=== PATIENT | female | born 1985 | race Caucasian/White ===

== ENCOUNTER 2016-05-05 02:28 | Emergency (ER) | payer MEDICARE ==
[2016-05-05] MEDS ORDERED: Sodium Chloride 0.9% 1000 ML 1,000 ML IV STA (03:14)
[2016-05-05] MEDS ORDERED: NORVASC 5 MG PO ONE (03:14)
--- NOTE | 2016-05-05 03:18 | ERPHSYRPT ---
- History of Present Illness Time Seen by Provider: 05/05/16 03:17 Source: patient Exam Limitations: no limitations Patient Subjective Stated Complaint: Pt C/O cold symptoms - cough, congestion for several days. Sts tonight had elevated B/P at work, sts took 10 mg lisinopril and 37.5 mg of metoprolol to attempt to decrease B/P and HR. Sts took these meds at 0100. Sts no relief. Triage Nursing Assessment: Pt alert, oriented, answers all questions appropriately. Skin p/w/d, resps non-labored. Pt ambulatory to tx room, steady gait noted. Heart RRR. Lungs CTA bilat non-labored. SPO2 98% room air. Physician History: Pt C/O cold symptoms - cough, congestion for several days. Sts tonight had elevated B/P at work, sts took 10 mg lisinopril and 37.5 mg of metoprolol to attempt to decrease B/P and HR. Sts took these meds at 0100. Sts no relief. Timing/Duration: today Activities at Onset: none Nitro Today/Relief: no nitro taken today Aspirin Treatment Today: no aspirin today Associated Symptoms: headaches Prior Chest Pain/Cardiac Workup: no prior chest pain Allergies/Adverse Reactions: acetaminophen [From Vicodin ES] Allergy (Mild, Verified 05/05/16 02:42) hydrocodone bitartrate [From Vicodin ES] Allergy (Mild, Verified 05/05/16 02:42) ketorolac tromethamine [From Toradol] Allergy (Mild, Verified 05/05/16 02:42) lisinopril Allergy (Mild, Verified 05/05/16 02:42) prochlorperazine edisylate [From Compazine] Allergy (Mild, Verified 05/05/16 02: 42) prochlorperazine maleate [From Compazine] Allergy (Mild, Verified 05/05/16 02:42 ) promethazine HCl [From Phenergan] Allergy (Mild, Verified 05/05/16 02:42) vancomycin Allergy (Mild, Verified 05/05/16 02:42) Home Medications: Mycophenolate Mofetil [Cellcept] 500 mg PO BID 05/25/12 [History] Tacrolimus [Prograf] 5 mg PO BID 05/25/12 [History] Metoprolol Succinate 25 mg Xl* [Toprol-Xl 25MG Tablets] 25 mg PO UD PRN 03/28 [History] Sulfamethoxazole/Trimethoprim [Bactrim Ds Tablet] 1 each PO DAILY 05/05/16 [ History] Hx Tetanus, Diphtheria Vaccination/Date Given: (2006) Hx Influenza Vaccination/Date Given: Yes (2012) Hx Pneumococcal Vaccination/Date Given: Yes (2012) Immunizations Up to Date: Yes - Review of Systems Constitutional: No Fever, No Chills Eyes: No Symptoms Ears, Nose, & Throat: No Symptoms Respiratory: No Cough, No Dyspnea Cardiac: No Chest Pain, No Edema, No Syncope Abdominal/Gastrointestinal: No Abdominal Pain, No Nausea, No Vomiting, No Diarrhea Genitourinary Symptoms: No Dysuria Musculoskeletal: No Back Pain, No Neck Pain Skin: No Rash Neurological: Headache, No Dizziness, No Focal Weakness, No Sensory Changes Psychological: No Symptoms Endocrine: No Symptoms All Other Systems: Reviewed and Negative - Past Medical History Pertinent Past Medical History: Yes Neurological History: Seizures Cardiac History: Hypertension Musculoskeletal History: Arthritis, Osteoarthritis GI Medical History: GERD History: Renal Disease, Other Female Reproductive Disorders: Abnormal Uterine Bleeding, Menstrual Problems, Other Other Medical History: POLYCYSTIC OVARIES, BACTERIAL MENNINGITIS - Past Surgical History Past Surgical History: Yes Genitourinary: Kidney Surgery, Kidney Transplant Musculoskeletal: Orthopedic Surgery Other Surgical History: tonsillectomy, grafts to right arm, perma caths, laryngoplasty - Social History Smoking Status: Never smoker Exposure to second hand smoke: No Drug Use: none Patient Lives Alone: No - Female History Hx Now: No - Nursing Vital Signs Temperature: 97.9 F Temperature Source: Oral Pulse Rate: 91 Respiratory Rate: 16 Pain Intensity: 5 - Physical Exam General Appearance: no apparent distress, alert Eye Exam: PERRL/EOMI, eyes nml inspection Ears, Nose, Throat Exam: normal ENT inspection, moist mucous membranes Neck Exam: normal inspection, non-tender, supple Respiratory Exam: normal breath sounds, lungs clear, No respiratory distress Cardiovascular Exam: regular rate/rhythm, normal heart sounds, No edema Gastrointestinal/Abdomen Exam: soft, No tenderness, No mass Back Exam: normal inspection, No CVA tenderness, No vertebral tenderness Extremity Exam: normal inspection, normal range of motion Neurologic Exam: alert, oriented x 3, cooperative, normal mood/affect, nml cerebellar function, sensation nml, No motor deficits Skin Exam: normal color, warm, dry Lymphatic Exam: No adenopathy SpO2: 98 Oxygen Delivery: Room Air - Course Nursing assessment & vital signs reviewed: Yes Ordered Tests: Active Orders 24 hr Category Date Time Status Partnership Manager STAT Care 05/05/16 03:14 Active EKG-ER Only STAT Care 05/05/16 03:14 Active CBC W DIFF Stat Lab 05/05/16 03:46 Completed CMP Stat Lab 05/05/16 03:46 Completed NT PRO BNP Stat Lab 05/05/16 03:46 Completed TROPONIN Q3H Lab 05/05/16 03:46 Completed TROPONIN Q3H Lab 05/05/16 06:15 Ordered TROPONIN Q3H Lab 05/05/16 09:15 Ordered TROPONIN Q3H Lab 05/05/16 12:15 Ordered TROPONIN Q3H Lab 05/05/16 15:15 Ordered Medication Summary Discontinued Medications Generic Name Dose Route Start Last Admin Trade Name Freq PRN Reason Stop Dose Admin Amlodipine Besylate 5 mg 05/05/16 03:14 05/05/16 03:42 Norvasc 5 Mg PO 05/05/16 03:15 5 mg STAT ONE Administration Amlodipine Besylate Confirm 05/05/16 03:29 Norvasc 5 Mg Administered 05/05/16 03:30 Dose 5 mg .ROUTE .STK-MED ONE Sodium Chloride 1,000 mls @ 999 mls/hr 05/05/16 03:14 05/05/16 03:42 Sodium Chloride 0.9% 1000 Ml IV 05/05/16 04:14 999 mls/hr .Q1H1M STA Administration Sodium Chloride Confirm 05/05/16 03:29 Sodium Chloride 0.9% 1000 Ml Administered 05/05/16 03:30 Dose 1,000 mls @ ud .ROUTE .STK-MED ONE Lab/Rad Data: Laboratory Result Diagrams 05/05/16 03:46 05/05/16 03:46 Laboratory Results 05/05/16 05/05/16 05/05/16 Range/Units 03:46 03:46 03:46 WBC 7.2 (4.0-10.5) K/mm3 RBC 4.50 (4.1-5.4) M/mm3 Hgb 13.3 (12.0-16.0) gm/dl Hct 40.8 (35-47) % MCV 90.7 (78-100) fl MCH 29.6 (26-32) pg MCHC 32.6 (32-36) g/dl RDW 13.6 (11.5-14.0) % Plt Count 211 (150-450) K/mm3 MPV 12.4 H (6-9.5) fl Gran % 72.3 H (36.0-66.0) % Lymphocytes % 18.5 L (24.0-44.0) % Monocytes % 8.8 (0.0-12.0) % Eosinophils % 0.3 (0.00-5.0) % Basophils % 0.1 (0.0-0.4) % Basophils # 0.01 (0-0.4) Sodium 145 (136-145) mEq/L Potassium 3.7 (3.5-5.1) mEq/L Chloride 110 H (98-107) mEq/L Carbon Dioxide 23.5 (21-32) mEq/L Anion Gap 15.6 H (5-15) MEQ/L BUN 17 (9-20) mg/dL Creatinine 0.94 (0.55-1.30) mg/dl Estimated GFR > 60 ML/MIN Glucose 103 (70-110) MG/DL Calcium 8.9 (8.5-10.1) mg/dL Total Bilirubin 0.3 (0.2-1.0) mg/dL AST 31 (15-37) U/L ALT 35 (12-78) U/L Alkaline Phosphatase 68 (46-116) U/L Troponin I < 0.017 (0.000-0.056) ng/ml NT-Pro-B Natriuret Pep 452 H (0-125) pg/ml Serum Total Protein 6.9 (6.4-8.2) gm/dL Albumin 3.5 (3.4-5.0) g/dL - Progress Progress: improved - Departure Time of Disposition: 04:42 Departure Disposition: Home Clinical Impression: Hypertensive urgency Condition: Stable Critical Care Time: Yes Critical Care Time(excluding separately billable procedures): 30-74 minutes Referrals: SONIDO GARDINER [Primary Care Provider] - Instructions: Malignant Hypertension Additional Instructions: continue all your home meds. follow up with your primary care physician on friday
[2016-05-05] MEDS ORDERED: Sodium Chloride 0.9% 1000 ML 1,000 ML ONE (03:29)
[2016-05-05] MEDS ORDERED: NORVASC 5 MG ONE (03:29)
[2016-05-05 03:56] LABS: BASOPHIL % 0.1 % (0.0-0.4); Eosinophil % 0.3 % (0.00-5.0); Granulocytes % 72.3 % (36.0-66.0); Lymphocytes % 18.5 % (24.0-44.0); Mean Cell Volume 90.7 fl (78-100); Mean Corpuscular Hemoglobin 29.6 pg (26-32); Mean Platelet Volume 12.4 fl (6-9.5); Monocytes % 8.8 % (0.0-12.0); Platelet Count 211 K/mm3 (150-450); Red Cell Distribution Width 13.6 % (11.5-14.0); White Blood Count 7.2 K/mm3 (4.0-10.5)
[2016-05-05 04:16] LABS: ALBUMIN 3.5 g/dL (3.4-5.0); ALKALINE PHOSPHATASE 68 U/L (46-116); ANION GAP 15.6 MEQ/L (5-15); BILIRUBIN,TOTAL 0.3 mg/dL (0.2-1.0); BLOOD UREA NITROGEN 17 mg/dL (9-20); CHLORIDE 110 mEq/L (98-107); Carbon Dioxide 23.5 mEq/L (21-32); Glucose 103 MG/DL (70-110); Potassium 3.7 mEq/L (3.5-5.1); SGOT/AST 31 U/L (15-37); SGPT/ALT 35 U/L (12-78); SODIUM 145 mEq/L (136-145); Total Protein 6.9 gm/dL (6.4-8.2)
[2016-05-05 05:03] VITALS: BP 146/97; PULSE 85; O2SAT 97
== END 2016-05-05 05:05 | disposition home or self-care (01) ==
LOC: ED 02:28
DX: I16.0 Hypertensive urgency (principal); R05 Cough; R51 Headache; Z79.899 Other long term (current) drug therapy; I10 Essential (primary) hypertension
CPT/HCPCS: 36415; 80053; 83880; 84484; 85025; 93005; 93041; 96360; 99284; A9270-GY

== ENCOUNTER 2019-11-10 07:39 | Observation (INO) | payer MEDICARE ==
[2019-11-10] MEDS ORDERED: Catapres 0.1 MG PO ONE (08:17)
--- NOTE | 2019-11-10 08:17 | ERPHSYRPT ---
- History of Present Illness Time Seen by Provider: 11/10/19 08:06 Source: patient Exam Limitations: no limitations Patient Subjective Stated Complaint: High blood pressure and high blood sugar from steroids being given for kidney transplant rejection issues. Physician History: She is a renal transplant patient, followed by [facility], she is showing signs of rejection and yesterday started high dose IV steroids for 3 days, then will be on oral prednisone. In the past, the steroids have caused quite high blood pressure, and somewhat elevated blood sugar. She is on routine BP med, but is not a diabetic ordinarily. Her BP became elevated at home today and the renal team had her talk to her braille translator. She does not have a hx of CAD, just HTN. The plan was to start her on clonidine 0.1 mg tid in addition to her usual BP med, but she decided to come to ER because she did not feel well, no chest pain, possible dyspnea. I think there is also some confusion on her medications because she has been on two beta blockers evidently. Norvasc causes excessive edema and she no longer takes that Timing/Duration: today Severity: moderate Modifying Factors: Improves With: other (steroids) Associated Symptoms: shortness of breath (mild) Allergies/Adverse Reactions: acetaminophen [From Vicodin ES] Allergy (Mild, Verified 11/10/19 09:45) hydrocodone bitartrate [From Vicodin ES] Allergy (Mild, Verified 11/10/19 09:45) ketorolac tromethamine [From Toradol] Allergy (Mild, Verified 11/10/19 09:45) lisinopril Allergy (Mild, Verified 11/10/19 09:45) prochlorperazine edisylate [From Compazine] Allergy (Mild, Verified 11/10/19 09:45) prochlorperazine maleate [From Compazine] Allergy (Mild, Verified 11/10/19 09:45) promethazine HCl [From Phenergan] Allergy (Mild, Verified 11/10/19 09:45) vancomycin Allergy (Mild, Verified 11/10/19 09:45) hydrocodone [From Vicodin] Allergy (Verified 11/10/19 09:45) ketorolac [From Toradol] Allergy (Verified 11/10/19 09:45) prochlorperazine [From Compazine] Allergy (Verified 11/10/19 09:45) promethazine [From Phenergan] Allergy (Verified 11/10/19 09:45) Home Medications: Mycophenolate Mofetil [Cellcept] 500 mg PO BID 05/25/12 [History] Tacrolimus [Prograf] 5 mg PO BID 05/25/12 [History] Metoprolol Succinate 25 mg Xl* [Toprol-Xl 25MG Tablets] 25 mg PO UD PRN 03/28/13 [History] Carvedilol 6.25 mg [Coreg 6.25 MG] 6.25 mg PO BID 11/09/19 [History] Sertraline HCl [Zoloft] 12.5 mg PO 11/09/19 [History] Carvedilol 6.25 mg [Coreg 6.25 MG] 1 tab PO BID 11/10/19 [History] Metoprolol Succinate 50 mg [Toprol Xl 50 MG] 1 tab PO BID 11/10/19 [History] Tacrolimus [Prograf] 5 mg PO BID 11/10/19 [History] Travel Risk - International Travel Have you traveled outside of the country in past 3 weeks: No - Coronavirus Screening Are you exhibiting any of the following symptoms?: No Close contact with a COVID-19 positive Pt in past 14-21 Days: No - Review of Systems Constitutional: No Symptoms Eyes: No Symptoms Ears, Nose, & Throat: No Symptoms Respiratory: Dyspnea, Other (mild) Cardiac: No Symptoms Abdominal/Gastrointestinal: No Symptoms Genitourinary Symptoms: No Symptoms Musculoskeletal: No Symptoms - Past Medical History Neurological History: No Pertinent History ENT History: No Pertinent History, Other (Corneal dystrophy) Cardiac History: Hypertension Respiratory History: No Pertinent History Endocrine Medical History: No Pertinent History Musculoskeletal History: No Pertinent History GI Medical History: GERD History: Renal Disease, Other (kidney transplant) Psycho-Social History: Anxiety Female Reproductive Disorders: Fibroids - Past Surgical History Past Surgical History: Yes Neuro Surgical History: No Pertinent History Cardiac: No Pertinent History Respiratory: No Pertinent History Gastrointestinal: No Pertinent History Genitourinary: Kidney Transplant Musculoskeletal: No Pertinent History Female Surgical History: No Pertinent History - Social History Smoking Status: Never smoker Exposure to second hand smoke: No Alcohol Use: None Drug Use: none Patient Lives Alone: No Significant Family History: other (See RN notes) - Female History Hx Now: No - Nursing Vital Signs Nursing Vital Signs: Initial Vital Signs Temperature 97.9 F 11/10/19 07:55 Pulse Rate 77 11/10/19 07:55 Respiratory Rate 20 11/10/19 07:55 Blood Pressure 205/139 11/10/19 07:55 O2 Sat by Pulse Oximetry 97 11/10/19 07:55 Pain Scale Pain Intensity 5 - Physical Exam General Appearance: mild distress, alert, anxiety Eye Exam: PERRL/EOMI, eyes nml inspection Ears, Nose, Throat Exam: normal ENT inspection Neck Exam: normal inspection, non-tender Respiratory Exam: normal breath sounds, airway intact Cardiovascular Exam: regular rate/rhythm, normal heart sounds, normal peripheral pulses Gastrointestinal/Abdomen Exam: soft, normal bowel sounds, other (surgical scar) Pelvic Exam: not done Rectal Exam: deferred Back Exam: other (N/E) Extremity Exam: normal inspection, normal range of motion Neurologic Exam: alert, oriented x 3, cooperative Skin Exam: normal color SpO2 Interpretation: normal SpO2: 98 (Initial reading good, then went to low 90's) O2 Delivery: Room Air - Course Nursing assessment & vital signs reviewed: Yes EKG Interpreted by Me: RATE, Sinus Rhythm, NORMAL AXIS, NORMAL INTERVALS, NORMAL QRS, NORMAL ST-T, Other (Computer read is biatrial enlargement.) - Radiology Exams Chest X-ray Interpretation: Reviewed by me, Negative Ordered Tests: Active Orders 24 hr Category Date Time Status CHEST 1 VIEW (PORTABLE) Stat Exams 11/10/19 12:21 Completed CBC W DIFF Stat Lab 11/10/19 12:00 Completed CMP Stat Lab 11/10/19 12:00 Completed CULTURE,URINE Stat Lab 11/10/19 10:53 Received D-DIMER QUANTITATIVE Stat Lab 11/10/19 12:00 Completed MAGNESIUM Stat Lab 11/10/19 12:00 Completed POCT GLUCOSE Stat Lab 11/10/19 08:20 Completed TROPONIN Q3H Lab 11/10/19 12:00 Completed TROPONIN Q3H Lab 11/10/19 14:15 Completed TROPONIN Q3H Lab 11/10/19 17:00 Ordered TROPONIN Q3H Lab 11/10/19 20:00 Ordered TROPONIN Q3H Lab 11/10/19 23:00 Ordered UA W/RFX UR CULTURE Stat Lab 11/10/19 10:53 Completed Transfer Order Routine Transfer 11/10/19 Ordered Medication Summary Generic Name Dose Route Start Last Admin Trade Name Joe PRN Reason Stop Dose Admin Sodium Chloride 1,000 mls @ 150 mls/hr 11/10/19 11:00 11/10/19 10:53 Sodium Chloride 0.9% 1000 Ml IV 12/10/19 10:59 150 mls/hr .Q6H40M LUI Administration Labetalol HCl 20 mg 11/10/19 10:45 Trandate 100mg/20 Ml Mdv IV 12/10/19 10:44 [id number] LUI Discontinued Medications Generic Name Dose Route Start Last Admin Trade Name Joe PRN Reason Stop Dose Admin Acetaminophen 650 mg 11/10/19 08:49 11/10/19 08:53 Tylenol 325 Mg PO 11/10/19 08:50 650 mg STAT STA Administration Acetaminophen Confirm 11/10/19 08:52 Tylenol 325 Mg Administered 11/10/19 08:53 Dose 650 mg .ROUTE .STK-MED ONE Clonidine 0.1 mg 11/10/19 08:17 11/10/19 08:20 Catapres 0.1 Mg PO 11/10/19 08:18 0.1 mg STAT ONE Administration Clonidine Confirm 11/10/19 08:18 Catapres 0.1 Mg Administered 11/10/19 08:19 Dose 0.1 mg .ROUTE .STK-MED ONE Hydralazine HCl 20 mg 11/10/19 10:01 11/10/19 10:11 Apresoline 20 Mg/Ml Inj IV 11/10/19 10:02 20 mg STAT ONE Administration Hydralazine HCl Confirm 11/10/19 10:05 Apresoline 20 Mg/Ml Inj Administered 11/10/19 10:06 Dose 20 mg .ROUTE .STK-MED ONE Sodium Chloride Confirm 11/10/19 10:45 Sodium Chloride 0.9% 1000 Ml Administered 11/10/19 10:46 Dose 1,000 mls @ ud .ROUTE .STK-MED ONE Ceftriaxone Sodium/Dextrose 1 g in 50 mls @ 100 mls/hr 11/10/19 12:17 11/10/19 14:05 Rocephin 1 Gm-D5w 50 Ml Bag IV 11/10/19 12:46 100 ml/hr STAT STA 100 mls/hr Administration Ceftriaxone Sodium/Dextrose Confirm 11/10/19 12:27 Rocephin 1 Gm-D5w 50 Ml Bag Administered 11/10/19 12:28 Dose 1 g in 50 mls @ ud IV .STK-MED ONE Labetalol HCl Confirm 11/10/19 10:35 Trandate 20 Mg/5 Ml Syringe Administered 11/10/19 10:36 Dose 20 mg IV .STK-MED ONE Labetalol HCl 20 mg 11/10/19 10:51 11/10/19 10:55 Trandate 20 Mg/5 Ml Syringe IV 11/10/19 10:52 20 mg STAT ONE Administration Morphine Sulfate 2 mg 11/10/19 10:00 11/10/19 10:10 Morphine Sulfate 2 Mg Inj IV 11/10/19 10:01 2 mg STAT ONE Administration Morphine Sulfate Confirm 11/10/19 10:05 Morphine Sulfate 2 Mg Inj Administered 11/10/19 10:06 Dose 2 mg .ROUTE .STK-MED ONE Ondansetron HCl 4 mg 11/10/19 08:51 11/10/19 08:53 Zofran Odt 4 Mg PO 11/10/19 08:52 4 mg STAT ONE Administration Ondansetron HCl Confirm 11/10/19 08:52 Zofran Odt 4 Mg Administered 11/10/19 08:53 Dose 4 mg .ROUTE .STK-MED ONE Lab/Rad Data: Laboratory Result Diagrams 11/10/19 12:00 11/10/19 12:00 Laboratory Results 11/10/19 11/10/19 11/10/19 Range/Units 14:15 12:00 12:00 WBC (4.0-10.5) K/mm3 RBC (4.1-5.4) M/mm3 Hgb (12.0-16.0) gm/dl Hct (35-47) % MCV (78-100) fl MCH (26-32) pg MCHC (32-36) g/dl RDW (11.5-14.0) % Plt Count (150-450) K/mm3 MPV (7.5-11.0) fl Gran % (36.0-66.0) % Eos # (Auto) (0-0.5) Absolute Lymphs (auto) (1.0-4.6) Absolute Monos (auto) (0.0-1.3) Lymphocytes % (24.0-44.0) % Monocytes % (0.0-12.0) % Eosinophils % (0.00-5.0) % Basophils % (0.0-0.4) % Absolute Granulocytes (1.4-6.9) Basophils # (0-0.4) D-Dimer 712 H* (215-500) ng/mL Sodium (137-145) mmol/L Potassium (3.5-5.1) mmol/L Chloride (98-107) mmol/L Carbon Dioxide (22-30) mmol/L Anion Gap (5-15) MEQ/L BUN (7-17) mg/dL Creatinine (0.52-1.04) mg/dL Estimated GFR ML/MIN Glucose (74-106) mg/dL POC Glucometer (74 to 106) mg/dL Calcium (8.4-10.2) mg/dL Magnesium (1.6-2.3) mg/dL Total Bilirubin (0.2-1.3) mg/dL AST (14-36) U/L ALT (0-35) U/L Alkaline Phosphatase (38-126) U/L Troponin I < 0.012 < 0.012 (0.000-0.034) ng/mL Serum Total Protein (6.3-8.2) g/dL Albumin (3.5-5.0) g/dL Urine Color (YELLOW) Urine Appearance (CLEAR) Urine pH (5-6) Ur Specific [place] (1.005-1.025) Urine Protein (Negative) Urine Ketones (NEGATIVE) Urine Blood (0-5) Art/ul Urine Nitrite (NEGATIVE) Urine Bilirubin (NEGATIVE) Urine Urobilinogen (0-1) mg/dL Ur Leukocyte Esterase (NEGATIVE) Urine WBC (Auto) (0-5) /HPF Urine RBC (Auto) (0-2) /HPF U Epithel Cells (Auto) (FEW) /HPF Urine Bacteria (Auto) (NEGATIVE) /HPF Urine Mucus (Auto) (NEGATIVE) /HPF Urine Culture Reflexed (NO) Urine Glucose (NEGATIVE) mg/dL Slides for Path Review 11/10/19 11/10/19 11/10/19 Range/Units 12:00 12:00 10:53 WBC 15.0 H (4.0-10.5) K/mm3 RBC 3.43 L (4.1-5.4) M/mm3 Hgb 9.8 L (12.0-16.0) gm/dl Hct 30.4 L (35-47) % MCV 88.6 (78-100) fl MCH 28.6 (26-32) pg MCHC 32.2 (32-36) g/dl RDW 13.0 (11.5-14.0) % Plt Count 209 (150-450) K/mm3 MPV 13.2 H (7.5-11.0) fl Gran % 91.0 H (36.0-66.0) % Eos # (Auto) 0.01 (0-0.5) Absolute Lymphs (auto) 0.50 L (1.0-4.6) Absolute Monos (auto) 0.83 (0.0-1.3) Lymphocytes % 3.3 L (24.0-44.0) % Monocytes % 5.5 (0.0-12.0) % Eosinophils % 0.1 (0.00-5.0) % Basophils % 0.1 (0.0-0.4) % Absolute Granulocytes 13.63 H (1.4-6.9) Basophils # 0.01 (0-0.4) D-Dimer (215-500) ng/mL Sodium 138 (137-145) mmol/L Potassium 3.9 (3.5-5.1) mmol/L Chloride 117 H (98-107) mmol/L Carbon Dioxide 13 L* (22-30) mmol/L Anion Gap 11.3 (5-15) MEQ/L BUN 42 H (7-17) mg/dL Creatinine 2.86 H (0.52-1.04) mg/dL Estimated GFR 19.9 ML/MIN Glucose 127 H (74-106) mg/dL POC Glucometer (74 to 106) mg/dL Calcium 8.8 (8.4-10.2) mg/dL Magnesium 1.7 (1.6-2.3) mg/dL Total Bilirubin 0.40 (0.2-1.3) mg/dL AST 15 (14-36) U/L ALT 9 (0-35) U/L Alkaline Phosphatase 66 (38-126) U/L Troponin I (0.000-0.034) ng/mL Serum Total Protein 6.1 L (6.3-8.2) g/dL Albumin 3.2 L (3.5-5.0) g/dL Urine Color YELLOW (YELLOW) Urine Appearance CLOUDY (CLEAR) Urine pH 7.0 (5-6) Ur Specific [place] 1.013 (1.005-1.025) Urine Protein >=500 (Negative) Urine Ketones NEGATIVE (NEGATIVE) Urine Blood NEGATIVE (0-5) Art/ul Urine Nitrite NEGATIVE (NEGATIVE) Urine Bilirubin NEGATIVE (NEGATIVE) Urine Urobilinogen NEGATIVE (0-1) mg/dL Ur Leukocyte Esterase SMALL (NEGATIVE) Urine WBC (Auto) 11-15 (0-5) /HPF Urine RBC (Auto) 3-5 (0-2) /HPF U Epithel Cells (Auto) MODERATE (FEW) /HPF Urine Bacteria (Auto) NONE (NEGATIVE) /HPF Urine Mucus (Auto) SLIGHT (NEGATIVE) /HPF Urine Culture Reflexed YES (NO) Urine Glucose 50 (NEGATIVE) mg/dL Slides for Path Review YES 11/10/19 Range/Units 08:20 WBC (4.0-10.5) K/mm3 RBC (4.1-5.4) M/mm3 Hgb (12.0-16.0) gm/dl Hct (35-47) % MCV (78-100) fl MCH (26-32) pg MCHC (32-36) g/dl RDW (11.5-14.0) % Plt Count (150-450) K/mm3 MPV (7.5-11.0) fl Gran % (36.0-66.0) % Eos # (Auto) (0-0.5) Absolute Lymphs (auto) (1.0-4.6) Absolute Monos (auto) (0.0-1.3) Lymphocytes % (24.0-44.0) % Monocytes % (0.0-12.0) % Eosinophils % (0.00-5.0) % Basophils % (0.0-0.4) % Absolute Granulocytes (1.4-6.9) Basophils # (0-0.4) D-Dimer (215-500) ng/mL Sodium (137-145) mmol/L Potassium (3.5-5.1) mmol/L Chloride (98-107) mmol/L Carbon Dioxide (22-30) mmol/L Anion Gap (5-15) MEQ/L BUN (7-17) mg/dL Creatinine (0.52-1.04) mg/dL Estimated GFR ML/MIN Glucose (74-106) mg/dL POC Glucometer 114 H (74 to 106) mg/dL Calcium (8.4-10.2) mg/dL Magnesium (1.6-2.3) mg/dL Total Bilirubin (0.2-1.3) mg/dL AST (14-36) U/L ALT (0-35) U/L Alkaline Phosphatase (38-126) U/L Troponin I (0.000-0.034) ng/mL Serum Total Protein (6.3-8.2) g/dL Albumin (3.5-5.0) g/dL Urine Color (YELLOW) Urine Appearance (CLEAR) Urine pH (5-6) Ur Specific [place] (1.005-1.025) Urine Protein (Negative) Urine Ketones (NEGATIVE) Urine Blood (0-5) Art/ul Urine Nitrite (NEGATIVE) Urine Bilirubin (NEGATIVE) Urine Urobilinogen (0-1) mg/dL Ur Leukocyte Esterase (NEGATIVE) Urine WBC (Auto) (0-5) /HPF Urine RBC (Auto) (0-2) /HPF U Epithel Cells (Auto) (FEW) /HPF Urine Bacteria (Auto) (NEGATIVE) /HPF Urine Mucus (Auto) (NEGATIVE) /HPF Urine Culture Reflexed (NO) Urine Glucose (NEGATIVE) mg/dL Slides for Path Review - Progress Progress: improved, re-examined Progress Note: BP sig. elevated, tx with catapres 0.1 mg, then hydralazine 20 mg IV, then labetalol 20 mg IV - after all that BP normalized. Lab: WBC slightly up, likely from steroids, no fever, moderate anemia, chronic, acute renal insufficiency from transplant rejection, acidotic, troponin neg, EKG no ischemia, D-dimer elevated, may be a false positive related to renal disease, but cannot R/O PE, cannot do CT of chest with contrast due to renal insuff, V/Q scan cannot be done until tomorrow, one dose lovenox today (reduced to once daily due to low GFR), mild UTI, rocephin given. Called the transplant team, spoke to Bisi Sarmiento, she is coordinator and she spoke to Dr. Sheppard. OK to give rocephin and lovenox. Agree with plan to do V/Q scan. She is due for solumedrol 250 mg IV, can be given in hospital and her BP monitored. During regular hours, to reach transplant team call [phone], after hours call [phone]. 11/10/19 15:40 Discussed with : Julian Will see patient in: hospital (observation) Counseled pt/family regarding: lab results, diagnosis, rad results - Departure Departure Disposition: Observation Clinical Impression: Dyspnea Qualifiers: Dyspnea type: shortness of breath Qualified Code(s): R06.02 - Shortness of breath; R06.00 - Dyspnea, unspecified; R06.01 - Orthopnea Condition: Stable Critical Care Time: No
[2019-11-10] MEDS ORDERED: Catapres 0.1 MG ONE (08:18)
[2019-11-10] MEDS ORDERED: TYLENOL 325 MG PO STA (08:49)
[2019-11-10] MEDS ORDERED: ZOFRAN ODT 4 MG PO ONE (08:51)
[2019-11-10] MEDS ORDERED: ZOFRAN ODT 4 MG ONE (08:52)
[2019-11-10] MEDS ORDERED: TYLENOL 325 MG ONE (08:52)
[2019-11-10] MEDS ORDERED: MORPHINE SULFATE 2 MG INJ IV ONE (10:00)
[2019-11-10] MEDS ORDERED: APRESOLINE 20 MG/ML INJ IV ONE (10:01)
[2019-11-10] MEDS ORDERED: MORPHINE SULFATE 2 MG INJ ONE (10:05)
[2019-11-10] MEDS ORDERED: APRESOLINE 20 MG/ML INJ ONE (10:05)
[2019-11-10] MEDS ORDERED: TRANDATE 20 MG/5 ML SYRINGE IV ONE ×2 (10:35→10:51)
[2019-11-10] MEDS ORDERED: Sodium Chloride 0.9% 1000 ML 1,000 ML ONE (10:45)
[2019-11-10] MEDS ORDERED: TRANDATE 100MG/20 ML MDV IV SCH (10:45)
[2019-11-10] MEDS: Sodium Chloride 0.9% 1000 ML 1,000 ML IV SCH ×2 (10:53→19:31)
[2019-11-10 12:02] LABS: Appearance CLOUDY (CLEAR); Bilirubin NEGATIVE (NEGATIVE); Blood NEGATIVE Ery/ul (0-5); Epithelial Cells MODERATE /HPF (FEW); Glucose 50 mg/dL (NEGATIVE); Ketones NEGATIVE (NEGATIVE); Leukocyte Esterase SMALL (NEGATIVE); Mucus SLIGHT /HPF (NEGATIVE); Nitrite NEGATIVE (NEGATIVE); Protein,Urine Dip >=500 (Negative); Specific Gravity 1.013 (1.005-1.025); Urobilinogen NEGATIVE mg/dL (0-1)
[2019-11-10 12:08] LABS: Absolute Neutrophil Ct (ANC) 13.63 (1.4-6.9); BASOPHIL % 0.1 % (0.0-0.4); Basophil (Absolute #) 0.01 (0-0.4); Eosinophil % 0.1 % (0.00-5.0); Eosinophil (Absolute #) 0.01 (0-0.5); Hematocrit 30.4 % (35-47); Hemoglobin 9.8 gm/dl (12.0-16.0); Lymphocytes % 3.3 % (24.0-44.0); Mean Cell Volume 88.6 fl (78-100); Mean Corpuscular Hemoglobin 28.6 pg (26-32); Mean Corpuscular Hgb Concent. 32.2 g/dl (32-36); Mean Platelet Volume 13.2 fl (7.5-11.0); Monocyte (Absolute #) 0.83 (0.0-1.3); Monocytes % 5.5 % (0.0-12.0); Platelet Count 209 K/mm3 (150-450); Red Blood Count 3.43 M/mm3 (4.1-5.4)
[2019-11-10 12:18] LABS: ALBUMIN 3.2 g/dL (3.5-5.0); ANION GAP 11.3 MEQ/L (5-15); BILIRUBIN,TOTAL 0.4 mg/dL (0.2-1.3); Calcium 8.8 mg/dL (8.4-10.2); Creatinine 1 2.86 mg/dL (0.52-1.04); EST GLOMERULAR FILTRATION RATE 19.9 ML/MIN; MAGNESIUM 1.7 mg/dL (1.6-2.3); Potassium 3.9 mmol/L (3.5-5.1); Total Protein 6.1 g/dL (6.3-8.2)
[2019-11-10] MEDS ORDERED: ROCEPHIN 1 Gm-D5w 50 ml Bag** 1 G/50 ML IVPB IV ONE (12:27)
[2019-11-10] MEDS: ROCEPHIN 1 Gm-D5w 50 ml Bag** 1 G/50 ML IVPB IV STA ×2 (12:30→14:05)
--- NOTE | 2019-11-10 12:45 | XRAY ---
Indication: Fatigue, weakness, dyspnea. Comparison: December 16, 2014. Portable apical lordotic chest again demonstrates normal heart, lungs, and bony thorax.
[2019-11-10 14:11] LABS: Slide Review 1 YES
[2019-11-10] MEDS ORDERED: solu-MEDROL 125 MG IV ONE (16:09)
[2019-11-10] MEDS ORDERED: ENOXAPARIN SODIUM SQ ONE ×2 (16:09→18:55)
[2019-11-10] MEDS ORDERED: HUMALOG SQ PRN (18:17)
[2019-11-10] MEDS ORDERED: Catapres 0.1 MG PO PRN (19:20)
[2019-11-10] MEDS ORDERED: Apresoline 25 MG TABLET PO SCH (20:00)
[2019-11-10] MEDS ORDERED: NON-FORMULARY ITEM PO SCH ×2 (22:00)
[2019-11-10] MEDS ORDERED: ZOLOFT 50 MG TABLET PO SCH (22:00)
--- NOTE | 2019-11-10 22:09 | PCM.HP ---
History of Present Illness - Chief Complaint Chief Complaint: Hypertensive crisis History of Present Illness: is a 34 year old female. Patient is a 34 yr old female renal transplant patient with HTN and proteinuria.Transplant was in 2012 LLQ. 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 Patient began having a tightness /squeezing sensation mid chest and some difficulty taking a deep breath hours after her IV infusion of Solumedrol 250 mg and she presented to ER. Her B/P was 209/135 and she was given Clonidine as instructed by her Electrical Intern but req uired IV Hydralazine then Lobetolol due to tachycardia. Workup showed normal CXR,troponin not elevated but d-dimer was elevated at 712, BUN/Signalman = 42/2.86 so unable to do contrasted Chest CT and patient was given Lovenox injection and admitted to Observation until VQ scan could be done in the morning.Patient had a renal biopsy on Friday this week after showing donor specific antibodies. She was given IV Rocephin in ER for UTI. - Review of Systems Constitutional: Other (no fever) Eyes: No Symptoms Ears, Nose, & Throat: Ear Pain, Mouth Pain (back molar tender), Other (no sore throat) Respiratory: Short Of Breath (see HPI) Cardiac: Chest Pain (see HPI), Other (no edema) Abdominal/Gastrointestinal: No Symptoms Genitourinary Symptoms: No Symptoms Musculoskeletal: No Symptoms Skin: No Symptoms Neurological: No Symptoms Psychological: Anxiety ( during this HTN crisis) Endocrine: No Symptoms Hematologic/Lymphatic: No Symptoms Medications & Allergies Home Medications: Home Medication List Mycophenolate Mofetil [Cellcept] 500 mg PO TID 05/25/12 [History Confirmed 11/10/19] Sertraline HCl [Zoloft] 12.5 mg PO HS 11/09/19 [History Confirmed 11/10/19] Carvedilol 6.25 mg [Coreg 6.25 MG] 1 tab PO BID 11/10/19 [History Confirmed 11/10/19] Tacrolimus [Prograf] 5 mg PO BID 11/10/19 [History Confirmed 11/10/19] Allergies/Adverse Reactions: Allergies Allergy/AdvReac Type Severity Reaction Status Date / Time acetaminophen Allergy Mild Verified 11/10/19 09:45 [From Vicodin ES] hydrocodone bitartrate Allergy Mild Verified 11/10/19 09:45 [From Vicodin ES] ketorolac tromethamine Allergy Mild Verified 11/10/19 09:45 [From Toradol] lisinopril Allergy Mild Verified 11/10/19 09:45 prochlorperazine edisylate Allergy Mild Verified 11/10/19 09:45 [From Compazine] prochlorperazine maleate Allergy Mild Verified 11/10/19 09:45 [From Compazine] promethazine HCl Allergy Mild Verified 11/10/19 09:45 [From Phenergan] vancomycin Allergy Mild Verified 11/10/19 09:45 hydrocodone [From Vicodin] Allergy Verified 11/10/19 09:45 ketorolac [From Toradol] Allergy Verified 11/10/19 09:45 prochlorperazine Allergy Verified 11/10/19 09:45 [From Compazine] promethazine [From Phenergan] Allergy Verified 11/10/19 09:45 - Past Medical History Past Medical History: Yes Neurological History: No Pertinent History ENT History: No Pertinent History, Other Cardiac History: Hypertension Respiratory History: No Pertinent History Endocrine Medical History: No Pertinent History, Other (hyperglycemia due to steroids) Musculoskelatal History: No Pertinent History GI Medical History: GERD History: Renal Disease, Other (Renal transplant 2005 to RLQ donor was patient's Mother-rejected. 2nd renal transplant 2012 to Q) Pyscho-Social History: Anxiety, Depression Reproductive Disorders: Fibroids Comment: Fukes Disease - Female History Hx Last Menstrual Period: 9 days ago Are you now?: No - Past Surgical History Past Surgical History: Yes Neuro Surgical History: No Pertinent History Cardiac History: No Pertinent History Respiratory Surgery: No Pertinent History GI Surgical History: No Pertinent History Genitourinary Surgical Hx: Kidney Transplant Musculskeletal Surgical Hx: No Pertinent History Female Surgical History: No Pertinent History Other Surgical History: Larynoplasty with T+A. Numerous kidney biopsys. 1 kidney transplant 2005 that was removed 2008. 1 kidney transplant 2012 - Social History Smoking Status: Former smoker Exposure to second hand smoke: Yes (work) Alcohol: None, Rarely Drug Use: none Significant Family History: other (See RN notes) - Physical Exam Vital Signs: Vital Signs - 24 hr Temp Pulse Resp BP Pulse Ox 11/10/19 20:00 98.4 F 88 16 94/53 97 11/10/19 15:59 98 11/10/19 15:11 82 12 107/63 99 11/10/19 14:00 82 15 110/62 98 11/10/19 12:59 90 12 133/74 99 11/10/19 11:12 88 18 120/73 96 11/10/19 10:22 106 H 18 152/97 97 11/10/19 10:04 79 16 187/122 99 11/10/19 09:14 69 18 175/119 95 11/10/19 08:56 86 15 197/118 97 11/10/19 07:55 97.9 F 77 20 205/139 97 General Appearance: no apparent distress, other (eating evening meal) Neurologic Exam: alert, oriented x 3, cooperative, normal mood/affect Eye Exam: PERRL/EOMI, eyes nml inspection Ears, Nose, Throat Exam: TM abnormal (R) (dull), TM abnormal (L) (dull), other (some PND,right back molar mild gum inflammatio posteriorly) Respiratory Exam: normal breath sounds, lungs clear Cardiovascular Exam: regular rate/rhythm, other (no edema) Gastrointestinal/Abdomen Exam: soft (nontender), normal bowel sounds, mass (LLQ transplanted kidney is palpable) Back Exam: normal inspection (no tenderness) Extremity Exam: normal inspection Skin Exam: normal color, warm, dry Results - Labs Lab/Micro Results: Lab Results-Last 24 Hours 11/10/19 11/10/19 11/10/19 Range/Units 08:20 10:53 12:00 WBC 15.0 H (4.0-10.5) K/mm3 RBC 3.43 L (4.1-5.4) M/mm3 Hgb 9.8 L (12.0-16.0) gm/dl Hct 30.4 L (35-47) % MCV 88.6 (78-100) fl MCH 28.6 (26-32) pg MCHC 32.2 (32-36) g/dl RDW 13.0 (11.5-14.0) % Plt Count 209 (150-450) K/mm3 MPV 13.2 H (7.5-11.0) fl Gran % 91.0 H (36.0-66.0) % Eos # (Auto) 0.01 (0-0.5) Absolute Lymphs (auto) 0.50 L (1.0-4.6) Absolute Monos (auto) 0.83 (0.0-1.3) Lymphocytes % 3.3 L (24.0-44.0) % Monocytes % 5.5 (0.0-12.0) % Eosinophils % 0.1 (0.00-5.0) % Basophils % 0.1 (0.0-0.4) % Absolute Granulocytes 13.63 H (1.4-6.9) Basophils # 0.01 (0-0.4) D-Dimer (215-500) ng/mL Sodium (137-145) mmol/L Potassium (3.5-5.1) mmol/L Chloride (98-107) mmol/L Carbon Dioxide (22-30) mmol/L Anion Gap (5-15) MEQ/L BUN (7-17) mg/dL Creatinine (0.52-1.04) mg/dL Estimated GFR ML/MIN Glucose (74-106) mg/dL POC Glucometer 114 H (74 to 106) mg/dL Calcium (8.4-10.2) mg/dL Magnesium (1.6-2.3) mg/dL Total Bilirubin (0.2-1.3) mg/dL AST (14-36) U/L ALT (0-35) U/L Alkaline Phosphatase (38-126) U/L Troponin I (0.000-0.034) ng/mL Serum Total Protein (6.3-8.2) g/dL Albumin (3.5-5.0) g/dL Urine Color YELLOW (YELLOW) Urine Appearance CLOUDY (CLEAR) Urine pH 7.0 (5-6) Ur Specific [place] 1.013 (1.005-1.025) Urine Protein >=500 (Negative) Urine Ketones NEGATIVE (NEGATIVE) Urine Blood NEGATIVE (0-5) Art/ul Urine Nitrite NEGATIVE (NEGATIVE) Urine Bilirubin NEGATIVE (NEGATIVE) Urine Urobilinogen NEGATIVE (0-1) mg/dL Ur Leukocyte Esterase SMALL (NEGATIVE) Urine WBC (Auto) 11-15 (0-5) /HPF Urine RBC (Auto) 3-5 (0-2) /HPF U Epithel Cells (Auto) MODERATE (FEW) /HPF Urine Bacteria (Auto) NONE (NEGATIVE) /HPF Urine Mucus (Auto) SLIGHT (NEGATIVE) /HPF Urine Culture Reflexed YES (NO) Urine Glucose 50 (NEGATIVE) mg/dL Slides for Path Review YES 11/10/19 11/10/19 11/10/19 Range/Units 12:00 12:00 12:00 WBC (4.0-10.5) K/mm3 RBC (4.1-5.4) M/mm3 Hgb (12.0-16.0) gm/dl Hct (35-47) % MCV (78-100) fl MCH (26-32) pg MCHC (32-36) g/dl RDW (11.5-14.0) % Plt Count (150-450) K/mm3 MPV (7.5-11.0) fl Gran % (36.0-66.0) % Eos # (Auto) (0-0.5) Absolute Lymphs (auto) (1.0-4.6) Absolute Monos (auto) (0.0-1.3) Lymphocytes % (24.0-44.0) % Monocytes % (0.0-12.0) % Eosinophils % (0.00-5.0) % Basophils % (0.0-0.4) % Absolute Granulocytes (1.4-6.9) Basophils # (0-0.4) D-Dimer 712 H* (215-500) ng/mL Sodium 138 (137-145) mmol/L Potassium 3.9 (3.5-5.1) mmol/L Chloride 117 H (98-107) mmol/L Carbon Dioxide 13 L* (22-30) mmol/L Anion Gap 11.3 (5-15) MEQ/L BUN 42 H (7-17) mg/dL Creatinine 2.86 H (0.52-1.04) mg/dL Estimated GFR 19.9 ML/MIN Glucose 127 H (74-106) mg/dL POC Glucometer (74 to 106) mg/dL Calcium 8.8 (8.4-10.2) mg/dL Magnesium 1.7 (1.6-2.3) mg/dL Total Bilirubin 0.40 (0.2-1.3) mg/dL AST 15 (14-36) U/L ALT 9 (0-35) U/L Alkaline Phosphatase 66 (38-126) U/L Troponin I < 0.012 (0.000-0.034) ng/mL Serum Total Protein 6.1 L (6.3-8.2) g/dL Albumin 3.2 L (3.5-5.0) g/dL Urine Color (YELLOW) Urine Appearance (CLEAR) Urine pH (5-6) Ur Specific [place] (1.005-1.025) Urine Protein (Negative) Urine Ketones (NEGATIVE) Urine Blood (0-5) Art/ul Urine Nitrite (NEGATIVE) Urine Bilirubin (NEGATIVE) Urine Urobilinogen (0-1) mg/dL Ur Leukocyte Esterase (NEGATIVE) Urine WBC (Auto) (0-5) /HPF Urine RBC (Auto) (0-2) /HPF U Epithel Cells (Auto) (FEW) /HPF Urine Bacteria (Auto) (NEGATIVE) /HPF Urine Mucus (Auto) (NEGATIVE) /HPF Urine Culture Reflexed (NO) Urine Glucose (NEGATIVE) mg/dL Slides for Path Review 11/10/19 11/10/19 11/10/19 Range/Units 14:15 17:05 17:35 WBC (4.0-10.5) K/mm3 RBC (4.1-5.4) M/mm3 Hgb (12.0-16.0) gm/dl Hct (35-47) % MCV (78-100) fl MCH (26-32) pg MCHC (32-36) g/dl RDW (11.5-14.0) % Plt Count (150-450) K/mm3 MPV (7.5-11.0) fl Gran % (36.0-66.0) % Eos # (Auto) (0-0.5) Absolute Lymphs (auto) (1.0-4.6) Absolute Monos (auto) (0.0-1.3) Lymphocytes % (24.0-44.0) % Monocytes % (0.0-12.0) % Eosinophils % (0.00-5.0) % Basophils % (0.0-0.4) % Absolute Granulocytes (1.4-6.9) Basophils # (0-0.4) D-Dimer (215-500) ng/mL Sodium (137-145) mmol/L Potassium (3.5-5.1) mmol/L Chloride (98-107) mmol/L Carbon Dioxide (22-30) mmol/L Anion Gap (5-15) MEQ/L BUN (7-17) mg/dL Creatinine (0.52-1.04) mg/dL Estimated GFR ML/MIN Glucose (74-106) mg/dL POC Glucometer 107 H (74 to 106) mg/dL Calcium (8.4-10.2) mg/dL Magnesium (1.6-2.3) mg/dL Total Bilirubin (0.2-1.3) mg/dL AST (14-36) U/L ALT (0-35) U/L Alkaline Phosphatase (38-126) U/L Troponin I < 0.012 < 0.012 (0.000-0.034) ng/mL Serum Total Protein (6.3-8.2) g/dL Albumin (3.5-5.0) g/dL Urine Color (YELLOW) Urine Appearance (CLEAR) Urine pH (5-6) Ur Specific [place] (1.005-1.025) Urine Protein (Negative) Urine Ketones (NEGATIVE) Urine Blood (0-5) Art/ul Urine Nitrite (NEGATIVE) Urine Bilirubin (NEGATIVE) Urine Urobilinogen (0-1) mg/dL Ur Leukocyte Esterase (NEGATIVE) Urine WBC (Auto) (0-5) /HPF Urine RBC (Auto) (0-2) /HPF U Epithel Cells (Auto) (FEW) /HPF Urine Bacteria (Auto) (NEGATIVE) /HPF Urine Mucus (Auto) (NEGATIVE) /HPF Urine Culture Reflexed (NO) Urine Glucose (NEGATIVE) mg/dL Slides for Path Review 11/10/19 11/10/19 Range/Units 20:30 20:53 WBC (4.0-10.5) K/mm3 RBC (4.1-5.4) M/mm3 Hgb (12.0-16.0) gm/dl Hct (35-47) % MCV (78-100) fl MCH (26-32) pg MCHC (32-36) g/dl RDW (11.5-14.0) % Plt Count (150-450) K/mm3 MPV (7.5-11.0) fl Gran % (36.0-66.0) % Eos # (Auto) (0-0.5) Absolute Lymphs (auto) (1.0-4.6) Absolute Monos (auto) (0.0-1.3) Lymphocytes % (24.0-44.0) % Monocytes % (0.0-12.0) % Eosinophils % (0.00-5.0) % Basophils % (0.0-0.4) % Absolute Granulocytes (1.4-6.9) Basophils # (0-0.4) D-Dimer (215-500) ng/mL Sodium (137-145) mmol/L Potassium (3.5-5.1) mmol/L Chloride (98-107) mmol/L Carbon Dioxide (22-30) mmol/L Anion Gap (5-15) MEQ/L BUN (7-17) mg/dL Creatinine (0.52-1.04) mg/dL Estimated GFR ML/MIN Glucose (74-106) mg/dL POC Glucometer 237 H (74 to 106) mg/dL Calcium (8.4-10.2) mg/dL Magnesium (1.6-2.3) mg/dL Total Bilirubin (0.2-1.3) mg/dL AST (14-36) U/L ALT (0-35) U/L Alkaline Phosphatase (38-126) U/L Troponin I < 0.012 (0.000-0.034) ng/mL Serum Total Protein (6.3-8.2) g/dL Albumin (3.5-5.0) g/dL Urine Color (YELLOW) Urine Appearance (CLEAR) Urine pH (5-6) Ur Specific [place] (1.005-1.025) Urine Protein (Negative) Urine Ketones (NEGATIVE) Urine Blood (0-5) Art/ul Urine Nitrite (NEGATIVE) Urine Bilirubin (NEGATIVE) Urine Urobilinogen (0-1) mg/dL Ur Leukocyte Esterase (NEGATIVE) Urine WBC (Auto) (0-5) /HPF Urine RBC (Auto) (0-2) /HPF U Epithel Cells (Auto) (FEW) /HPF Urine Bacteria (Auto) (NEGATIVE) /HPF Urine Mucus (Auto) (NEGATIVE) /HPF Urine Culture Reflexed (NO) Urine Glucose (NEGATIVE) mg/dL Slides for Path Review - Radiology Impressions Radiology Exams & Impressions: Radiology Procedures Category Date Time Status CHEST 1 VIEW (PORTABLE) Stat Exams 11/10/19 12:21 Completed - Other Procedures and Tests Respiratory Therapy 11/10/19 16:09 Oxygen Nasal Cannula 2 lpm Assessment/Plan (1) Hypertensive urgency Current Visit: No Status: Resolved Assessment & Plan: moniter overnight vitals q 2hour Code(s): I16.0 - HYPERTENSIVE URGENCY (2) Elevated d-dimer Current Visit: Yes Status: Acute Assessment & Plan: VQ scan,will discharge home if negative. Code(s): R79.89 - OTHER SPECIFIED ABNORMAL FINDINGS OF BLOOD CHEMISTRY (3) Hx of kidney transplant Current Visit: Yes Status: Chronic Assessment & Plan: 2012 with signs of rejection followed by Dr Chris Sheppard [facility]. [employer] - Nabila MELENDEZ phone [phone], fax [phone] (4) Current use of steroid medication Current Visit: Yes Status: Acute Assessment & Plan: given for renal transplant rejection. Code(s): Z79.52 - ASSISTED (CURRENT) USE OF SYSTEMIC STEROIDS (5) Hyperglycemia Current Visit: Yes Status: Acute Assessment & Plan: due to IV steroids,is on sliding scale Humalog/Novalog and has Rx from transplant team and has a glucometer at home. Code(s): R73.9 - HYPERGLYCEMIA, UNSPECIFIED (6) UTI (urinary tract infection) Current Visit: Yes Status: Acute Qualifiers: Urinary tract infection type: site unspecified Assessment & Plan: mild changes ER UA,culture pending. Rocephin 1 gram given in ER. Code(s): N39.0 - URINARY TRACT INFECTION, SITE NOT SPECIFIED
[2019-11-11] MEDS: Coreg 6.25 MG PO SCH ×2 (00:07→09:49)
[2019-11-11] MEDS: Sodium Chloride 0.9% 1000 ML 1,000 ML IV SCH (05:40)
[2019-11-11 07:41] VITALS: O2SAT 96
[2019-11-11] MEDS ORDERED: PATIENT OWN MEDICATION PO SCH ×2 (10:00)
[2019-11-11] MEDS ORDERED: FLUZONE QUAD 2020-2021 SYRINGE IM ONE (10:00)
--- NOTE | 2019-11-11 10:53 | XRAY ---
Indication: Chest pain and short of breath. Elevated d-dimer. Renal insufficiency. Comparison: None Patient received 5.6 mCi technetium 99 MAA for the perfusion portion of the exam. Patient inhaled 35.1 mCi aerosolized technetium 99 DTPA for the ventilation portion. Multiple planar images obtained. Perfusion images demonstrates normal radiopharmaceutical activity bilaterally without focal segmental/subsegmental perfusion defect. Ventilation images demonstrates homogeneous radiopharmaceutical activity bilaterally. Impression: Nuclear medicine ventilation/perfusion scan is normal.
[2019-11-11 12:00] VITALS: BP 133/80; PULSE 67
--- NOTE | 2019-11-11 12:51 | PCM.DCORD ---
- Discharge Discharge Date: 11/11/19 Disposition: Home, Self-Care Condition: Stable Prescriptions: New Clonidine HCl 0.1 mg [Catapres 0.1 MG] 0.2 mg PO Q4H PRN PRN tablet PRN Reason: Hypertension Continue Mycophenolate Mofetil [Cellcept] 500 mg PO TID Sertraline HCl [Zoloft] 12.5 mg PO HS Tacrolimus [Prograf] 5 mg PO BID Carvedilol 6.25 mg [Coreg 6.25 MG] 1 tab PO BID Instructions: High Blood Pressure (DC) Additional Instructions: Come back @4:00 P.M. as out patient for your 3rd dose of Solumedrol. Follow up with: PATEL BUITRAGO DO [Primary Care Provider] - 11/19/19 3:30 pm Forms: Discharge Instructions
== END 2019-11-11 12:15 | disposition home or self-care (01) ==
LOC: MERGE 07:39 → EDBD 07:39 → ED 07:39 → MED SURG 14:46
PROVIDERS: ADMIT Family Medicine; ATTEND Family Medicine
DX: I16.0 Hypertensive urgency (principal); Z94.0 Kidney transplant status; I10 Essential (primary) hypertension; R80.9 Proteinuria, unspecified; N39.0 Urinary tract infection, site not specified; K13.79 Other lesions of oral mucosa; H92.09 Otalgia, unspecified ear; Z79.52 Long term (current) use of systemic steroids; R73.9 Hyperglycemia, unspecified
CPT/HCPCS: 36000; 36415; 71045; 78582; 80053; 81001; 82962; 83735; 84484; 85025; 85379; 86317; 86787; 87086; 93268; 94760; 96360; 96361; 96365; 96374; 96375; 99285; A9540; A9567; G0008; G0378; 90686; J0360; J0696; J1650; J1817; J2270; J2930; Q0162; A9270-GY

== ENCOUNTER 2020-01-28 14:15 | Emergency (ER) | payer MEDICARE ==
--- NOTE | 2020-01-28 14:32 | ERPHSYRPT ---
- History of Present Illness Time Seen by Provider: 01/28/20 14:32 Source: patient Exam Limitations: no limitations Patient Subjective Stated Complaint: pt here for high blood pressure, pt was getting an infusion in op and b/p was elevated, she was given clinidine Triage Nursing Assessment: pt alert , face mask in place, resp easy, skin w/d/p. Physician History: This is a 34-year-old white female who has had 2 prior kidney transplants and was in the outpatient infusion center when she was found to have high blood pr essure readings. Patient has a history of hypertension and she is taking clonidine, carvedilol and losartan for blood pressure control. Patient states that she has not had any new symptoms. However, the readings were significantly high and patient was sent to the emergency department for evaluation. Patient had not taken her blood pressure medicine until right at the time of arrival for her infusion. When the reading was elevated they contacted the physician who prescribed the infusion and she took another clonidine prior to her medication infusion. After the infusion session, a repeat blood pressure level showed the systolic blood pressure to be over 200 and the patient came to emergency room for evaluation and management. Patient stated that the best her systolic blood pressure ever is is in the 140s to 150s range. She states that the diastolic blood pressure is never below 90. She stated that she routinely has spikes in her blood pressure to the 180s to 190s systolic. She also has noticed that after the infusions her blood pressure tends to run even higher for a couple d ays and then drops back down to her typical range. Patient is asymptomatic. Timing/Duration: today Severity: moderate Associated Symptoms: denies symptoms Allergies/Adverse Reactions: lisinopril Allergy (Mild, Verified 01/28/20 14:24) prochlorperazine edisylate [From Compazine] Allergy (Mild, Verified 01/28/20 14:24) prochlorperazine maleate [From Compazine] Allergy (Mild, Verified 01/28/20 14:24) vancomycin Allergy (Mild, Verified 01/28/20 14:24) hydrocodone [From Vicodin] Allergy (Verified 01/28/20 14:24) ketorolac [From Toradol] Allergy (Verified 01/28/20 14:24) promethazine [From Phenergan] Allergy (Verified 01/28/20 14:24) Home Medications: Sertraline HCl [Zoloft] 12.5 mg PO HS 11/09/19 [History] Carvedilol 6.25 mg [Coreg 6.25 MG] 2 tab PO BID 11/10/19 [History] Mycophenolate Sodium [Myfortic] 360 mg PO BID 01/28/20 [History] cycloSPORINE [Cyclosporine] 3 ea PO BID 01/28/20 [History] Hx Tetanus, Diphtheria Vaccination/Date Given: (2006) Hx Influenza Vaccination/Date Given: Yes Hx Pneumococcal Vaccination/Date Given: No Immunizations Up to Date: Yes Travel Risk - International Travel Have you traveled outside of the country in past 3 weeks: No (N) - Coronavirus Screening Are you exhibiting any of the following symptoms?: No Close contact with a COVID-19 positive Pt in past 14-21 Days: No - Review of Systems Constitutional: No Symptoms Eyes: No Symptoms Ears, Nose, & Throat: No Symptoms Respiratory: No Symptoms Cardiac: No Symptoms Abdominal/Gastrointestinal: No Symptoms Genitourinary Symptoms: No Symptoms Musculoskeletal: No Symptoms Skin: No Symptoms Neurological: No Symptoms Psychological: No Symptoms Endocrine: No Symptoms Hematologic/Lymphatic: No Symptoms Immunological/Allergic: No Symptoms All Other Systems: Reviewed and Negative - Past Medical History Pertinent Past Medical History: Yes Neurological History: No Pertinent History, Migraines, Seizures ENT History: No Pertinent History, Other Cardiac History: Hypertension Respiratory History: No Pertinent History Endocrine Medical History: No Pertinent History, Other Musculoskeletal History: No Pertinent History, Arthritis, Osteoarthritis GI Medical History: GERD History: Renal Disease, Other Psycho-Social History: Anxiety, Depression Female Reproductive Disorders: Fibroids Other Medical History: Fukes Disease, kidney transplant - Past Surgical History Past Surgical History: Yes Neuro Surgical History: No Pertinent History Cardiac: No Pertinent History Respiratory: No Pertinent History Gastrointestinal: No Pertinent History Genitourinary: Kidney Transplant Musculoskeletal: No Pertinent History, Orthopedic Surgery Female Surgical History: No Pertinent History Other Surgical History: Larynoplasty with T+A. Numerous kidney biopsys. 1 kidney transplant 2005 that was removed 2008. 1 kidney transplant 2012 - Social History Smoking Status: Former smoker Exposure to second hand smoke: Yes (once per week) Alcohol Use: None Drug Use: none Patient Lives Alone: Yes Significant Family History: other (See RN notes) - Female History Hx Last Menstrual Period: 01/23 Hx Now: No - Nursing Vital Signs Nursing Vital Signs: Initial Vital Signs Temperature 97.2 F 01/28/20 14:17 Pulse Rate 66 01/28/20 14:17 Respiratory Rate 18 01/28/20 14:17 Blood Pressure 171/83 01/28/20 14:17 O2 Sat by Pulse Oximetry 98 01/28/20 14:17 Pain Scale Pain Intensity 0 - Physical Exam General Appearance: no apparent distress, alert Eye Exam: PERRL/EOMI, eyes nml inspection Ears, Nose, Throat Exam: normal ENT inspection, moist mucous membranes Neck Exam: normal inspection, non-tender, supple, full range of motion Respiratory Exam: normal breath sounds, lungs clear, airway intact, No chest tenderness, No respiratory distress Cardiovascular Exam: regular rate/rhythm, normal heart sounds, normal peripheral pulses Gastrointestinal/Abdomen Exam: soft, normal bowel sounds, No tenderness Pelvic Exam: not done Rectal Exam: not done Back Exam: normal inspection, normal range of motion, No CVA tenderness, No vertebral tenderness Extremity Exam: normal inspection, normal range of motion, pelvis stable Neurologic Exam: alert, oriented x 3, cooperative, analyst geochemical prospecting II-XII nml as tested, normal mood/affect, nml cerebellar function, nml station & gait, sensation nml Skin Exam: normal color, warm, dry Lymphatic Exam: No adenopathy SpO2 Interpretation: normal SpO2: 98 O2 Delivery: Room Air - Course Nursing assessment & vital signs reviewed: Yes EKG Interpreted by Me: RATE (56), NORMAL AXIS, NORMAL INTERVALS, NORMAL QRS, Other (No acute ischemic changes. Comparison EKG 11/10/2019 no significant changes.) Ordered Tests: Active Orders 24 hr Category Date Time Status Veneer Slicing Machine Operator STAT Care 01/28/20 14:33 Active EKG-ER Only STAT Care 01/28/20 14:34 Active IV Insertion STAT Care 01/28/20 14:32 Active Pulse Oximetry (ED) STAT Care 01/28/20 14:32 Active CBC W DIFF Stat Lab 01/28/20 15:00 Completed CMP Stat Lab 01/28/20 15:00 Completed MAGNESIUM Stat Lab 01/28/20 15:00 Completed NT PRO BNP Stat Lab 01/28/20 15:00 Completed Medication Summary Discontinued Medications Generic Name Dose Route Start Last Admin Trade Name Freq PRN Reason Stop Dose Admin Clonidine 0.1 mg 01/28/20 16:10 Catapres 0.1 Mg PO 01/28/20 16:11 STAT ONE Metoprolol Tartrate 5 mg 01/28/20 14:51 01/28/20 15:27 Lopressor 5 Mg/5 Ml Injection IV 01/28/20 14:52 5 mg STAT ONE Administration Metoprolol Tartrate Confirm 01/28/20 15:22 Lopressor 5 Mg/5 Ml Injection Administered 01/28/20 15:23 Dose 5 mg IV .STK-MED ONE Lab/Rad Data: Laboratory Result Diagrams 01/28/20 15:00 01/28/20 15:00 Laboratory Results 01/28/20 01/28/20 Range/Units 15:00 15:00 WBC 3.3 L (4.0-10.5) K/mm3 RBC 3.12 L (4.1-5.4) M/mm3 Hgb 8.6 L (12.0-16.0) gm/dl Hct 28.5 L (35-47) % MCV 91.3 (78-100) fl MCH 27.6 (26-32) pg MCHC 30.2 L (32-36) g/dl RDW 12.7 (11.5-14.0) % Plt Count 177 (150-450) K/mm3 MPV 13.6 H (7.5-11.0) fl Gran % 77.0 H (36.0-66.0) % Eos # (Auto) 0.06 (0-0.5) Absolute Lymphs (auto) 0.53 L (1.0-4.6) Absolute Monos (auto) 0.14 (0.0-1.3) Lymphocytes % 16.3 L (24.0-44.0) % Monocytes % 4.3 (0.0-12.0) % Eosinophils % 1.8 (0.00-5.0) % Basophils % 0.6 (0.0-0.4) % Absolute Granulocytes 2.50 (1.4-6.9) Basophils # 0.02 (0-0.4) Sodium 134 L (137-145) mmol/L Potassium 4.0 (3.5-5.1) mmol/L Chloride 108 H (98-107) mmol/L Carbon Dioxide 18 L (22-30) mmol/L Anion Gap 13.0 (5-15) MEQ/L BUN 39 H (7-17) mg/dL Creatinine 3.67 H (0.52-1.04) mg/dL Estimated GFR 15.0 ML/MIN Glucose 120 H (74-106) mg/dL Calcium 8.7 (8.4-10.2) mg/dL Magnesium 1.8 (1.6-2.3) mg/dL Total Bilirubin 0.30 (0.2-1.3) mg/dL AST 17 (14-36) U/L ALT 9 (0-35) U/L Alkaline Phosphatase 79 (38-126) U/L NT-Pro-B Natriuret Pep 7360 H (0-450) pg/mL Serum Total Protein 6.4 (6.3-8.2) g/dL Albumin 3.5 (3.5-5.0) g/dL - Progress Progress: improved, re-examined Progress Note: 01/28/20 16:12 Medical decision making: This patient's blood pressure is slowly improving. We have used clonidine and intravenous Lopressor for her. Patient states she is not symptomatic at this time either. She states this is not unusual for her blood pressure to have these types of readings. Patient monitors her blood pressure often and does use the clonidine as prescribed. She stated that we will not get her blood pressure normal and has not been normal in years. Patient does not want to be admitted or transferred to another facility. We will give her another clonidine 0.1 prior to discharge. She was told to follow- up with her sugar chipper machine operator and transplant specialist on 01/31/2020. If symptoms become present, or she is concerned about her blood pressure numbers, she is to return to the emergency department. 01/28/20 16:15 Counseled pt/family regarding: lab results, diagnosis, need for follow-up - Departure Departure Disposition: Home Clinical Impression: Renal hypertension, Hypertensive urgency Condition: Stable Critical Care Time: Yes Critical Care Time(excluding separately billable procedures): Critical 30-74 mins Referrals: PATEL BUITRAGO DO [Primary Care Provider] -
[2020-01-28] MEDS ORDERED: LOPRESSOR 5 MG/5 ML INJECTION IV ONE ×4 (14:51→17:00)
[2020-01-28 15:09] LABS: BASOPHIL % 0.6 % (0.0-0.4); Basophil (Absolute #) 0.02 (0-0.4); Eosinophil % 1.8 % (0.00-5.0); Eosinophil (Absolute #) 0.06 (0-0.5); Hematocrit 28.5 % (35-47); Hemoglobin 8.6 gm/dl (12.0-16.0); Lymphocyte (Absolute #) 0.53 (1.0-4.6); Lymphocytes % 16.3 % (24.0-44.0); Mean Cell Volume 91.3 fl (78-100); Mean Corpuscular Hemoglobin 27.6 pg (26-32); Mean Corpuscular Hgb Concent. 30.2 g/dl (32-36); Mean Platelet Volume 13.6 fl (7.5-11.0); Monocyte (Absolute #) 0.14 (0.0-1.3); Monocytes % 4.3 % (0.0-12.0); Platelet Count 177 K/mm3 (150-450); Red Blood Count 3.12 M/mm3 (4.1-5.4); Red Cell Distribution Width 12.7 % (11.5-14.0); White Blood Count 3.3 K/mm3 (4.0-10.5)
[2020-01-28 15:25] LABS: ALBUMIN 3.5 g/dL (3.5-5.0); BILIRUBIN,TOTAL 0.3 mg/dL (0.2-1.3); Calcium 8.7 mg/dL (8.4-10.2); Creatinine 1 3.67 mg/dL (0.52-1.04); MAGNESIUM 1.8 mg/dL (1.6-2.3); Total Protein 6.4 g/dL (6.3-8.2)
[2020-01-28 15:36] VITALS: PULSE 56
[2020-01-28 15:50] VITALS: BP 200/118
[2020-01-28] MEDS ORDERED: Catapres 0.1 MG PO ONE (16:10)
[2020-01-28] MEDS ORDERED: Catapres 0.1 MG ONE (16:15)
[2020-01-28 17:13] VITALS: O2SAT 97
== END 2020-01-28 17:26 | disposition home or self-care (01) ==
LOC: ED 14:15
DX: I12.9 Hypertensive chronic kidney disease with stage 1 through stage 4 chronic kidney disease, or unspecified chronic kidney disease (principal); I16.0 Hypertensive urgency; Z94.0 Kidney transplant status
CPT/HCPCS: 36415; 80053; 83735; 83880; 85025; 93005; 93041; 96374; 99284; 99291; A9270-GY

== ENCOUNTER 2020-04-15 16:18 | Observation (INO) | payer MEDICARE ==
--- NOTE | 2020-04-15 16:20 | ERPHSYRPT ---
- History of Present Illness Time Seen by Provider: 04/15/20 16:20 Source: patient Exam Limitations: no limitations Physician History: This is a 35-year-old white female who was seen at a clinic on 04/10/2020 and labs were drawn. Patient was noticing she increasing shortness of breath over the last several days. She stated that she felt that she was possibly low on hem oglobin because of her symptoms. However, she had certified surgical first assistant classes that she wanted to continue and finish before she was seen in the emergency department or possibly admitted in the hospital. Patient has been prescribed erythropoietin stimulating medication. However, because of health insurance issues she has not been able to fill her medication. She was just notified today that her hemoglobin was low at 6.3. Patient has a history of anemia but in reviewing her past somewhat recent lab work, her hemoglobin runs in the 9 range. Patient has had a history of 2 prior renal transplant. The most recent was 2012. She states that she is in need of another renal transplant. Patient has a history of seizure disorders, hypertension, migraines, arthritis, osteoarthritis, gastroesophageal reflux disease, Fuchs disorder, anxiety and depression. Timing/Duration: day(s) (5) Severity of Dyspnea-Max: mild Severity of Dyspnea-Current: mild Possible Cause: occasional episodes Modifying Factors: Improves With: activity Associated Symptoms: weakness, No cough, No chest pain/discomfort Allergies/Adverse Reactions: lisinopril Allergy (Mild, Verified 04/15/20 16:33) prochlorperazine edisylate [From Compazine] Allergy (Mild, Verified 04/15/20 16:33) prochlorperazine maleate [From Compazine] Allergy (Mild, Verified 04/15/20 16:33) vancomycin Allergy (Mild, Verified 04/15/20 16:33) hydrocodone [From Vicodin] Allergy (Verified 04/15/20 16:33) ketorolac [From Toradol] Allergy (Verified 04/15/20 16:33) promethazine [From Phenergan] Allergy (Verified 04/15/20 16:33) Home Medications: Sertraline HCl [Zoloft] 12.5 mg PO HS 11/09/19 [History] Carvedilol 6.25 mg [Coreg 6.25 MG] 1 tab PO BID 11/10/19 [History] cycloSPORINE [Cyclosporine] 3 ea PO BID 01/28/20 [History] Clonidine HCl 0.1 mg [Catapres 0.1 MG] 0.2 mg PO Q4HPRN PRN 02/25/20 [History] Losartan Potassium [Cozaar] 25 mg PO DAILY 02/25/20 [History] Tocilizumab 400 mg/20 ml [Actemra] 500 mg IV UD 02/25/20 [History] Mycophenolate Mofetil [Cellcept] 500 mg PO TID 04/15/20 [History] Hx Tetanus, Diphtheria Vaccination/Date Given: (2006) Hx Influenza Vaccination/Date Given: Yes Hx Pneumococcal Vaccination/Date Given: No Travel Risk - International Travel Have you traveled outside of the country in past 3 weeks: No - Coronavirus Screening Are you exhibiting any of the following symptoms?: No Close contact with a COVID-19 positive Pt in past 14-21 Days: No - Review of Systems Constitutional: Weakness Eyes: No Symptoms Ears, Nose, & Throat: No Symptoms Respiratory: Dyspnea, Dyspnea on Exertion ([place]) Cardiac: No Symptoms, No Chest Pain Abdominal/Gastrointestinal: No Symptoms Genitourinary Symptoms: No Symptoms Musculoskeletal: No Symptoms Skin: No Symptoms Neurological: No Symptoms Psychological: No Symptoms Endocrine: No Symptoms Hematologic/Lymphatic: No Symptoms Immunological/Allergic: No Symptoms All Other Systems: Reviewed and Negative - Past Medical History Pertinent Past Medical History: Yes Neurological History: Migraines, Seizures ENT History: Other Cardiac History: Hypertension Respiratory History: No Pertinent History Endocrine Medical History: Other Musculoskeletal History: Arthritis, Osteoarthritis GI Medical History: GERD History: Renal Disease, Other Psycho-Social History: Anxiety, Depression Female Reproductive Disorders: Fibroids Other Medical History: Fukes Disease, kidney transplant x2 - Past Surgical History Past Surgical History: Yes Neuro Surgical History: No Pertinent History Cardiac: No Pertinent History Respiratory: No Pertinent History Gastrointestinal: No Pertinent History Genitourinary: Kidney Transplant Musculoskeletal: No Pertinent History, Orthopedic Surgery Female Surgical History: No Pertinent History Other Surgical History: Larynoplasty with T+A. Numerous kidney biopsys. 1 kidney transplant 2005 that was removed 2008. 1 kidney transplant 2012. right upper arm dialysis graft that is flattened- non functioning - Social History Smoking Status: Former smoker Exposure to second hand smoke: Yes (once per week) Alcohol Use: None Drug Use: none Patient Lives Alone: Yes Significant Family History: other (See RN notes) - Nursing Vital Signs Nursing Vital Signs: Initial Vital Signs Temperature 98.6 F 04/15/20 16:25 Pulse Rate 63 04/15/20 16:25 Respiratory Rate 13 04/15/20 16:25 Blood Pressure 193/108 04/15/20 16:25 O2 Sat by Pulse Oximetry 100 04/15/20 16:25 Pain Scale Pain Intensity 0 - Physical Exam General Appearance: no apparent distress, alert, anxiety Eye Exam: PERRL/EOMI, eyes nml inspection Ears, Nose, Throat Exam: hearing grossly normal, normal ENT inspection Neck Exam: normal inspection, non-tender, supple, full range of motion Respiratory Exam: normal breath sounds, lungs clear, airway intact, No chest tenderness, No respiratory distress Cardiovascular/Chest Exam: normal heart sounds, regular rate/rhythm, normal peripheral pulses Abdominal/Gastrointestinal Exam: soft, normal bowel sounds, No tenderness Rectal Exam: not done Extremity Exam: non-tender, normal range of motion, normal inspection Neurologic Exam: alert, oriented x 3, cooperative, garment parts cutter hand II-XII nml as tested, normal mood/affect, nml cerebellar function, nml station & gait Skin Exam: warm, dry, pale Lymphatic Exam: No adenopathy SpO2 Interpretation: normal O2 Delivery: Room Air - Course Nursing assessment & vital signs reviewed: Yes Ordered Tests: Active Orders 24 hr Category Date Time Status IV Insertion STAT Care 04/15/20 16:43 Active CBC W DIFF Stat Lab 04/15/20 16:54 Results CMP Stat Lab 04/15/20 16:54 Completed Manual Differential NC Stat Lab 04/15/20 16:54 Results PROTIME WITH INR Stat Lab 04/15/20 16:54 Completed Pathologist Review Stat Lab 04/15/20 16:54 Results Transfer Order Routine Transfer 04/15/20 Ordered Medication Summary Generic Name Dose Route Start Last Admin Trade Name Freq PRN Reason Stop Dose Admin Sodium Chloride 500 mls @ 50 mls/hr 04/15/20 20:15 04/15/20 20:13 Sodium Chloride 0.9% 500 Ml IV 05/15/20 20:14 50 mls/hr .Q10H LUI Administration Lab/Rad Data: Laboratory Result Diagrams 04/15/20 16:54 04/15/20 16:54 Laboratory Results 04/15/20 04/15/20 04/15/20 Range/Units 16:57 16:57 16:54 WBC (4.0-10.5) K/mm3 RBC (4.1-5.4) M/mm3 Hgb (12.0-16.0) gm/dl Hct (35-47) % MCV (78-100) fl MCH (26-32) pg MCHC (32-36) g/dl RDW (11.5-14.0) % Plt Count (150-450) K/mm3 MPV (7.5-11.0) fl Segmented Neutrophils (36.0-66.0) % Band Neutrophils (0.0-2.0) % Lymphocytes (Manual) (24-44) % Monocytes (Manual) (0.0-12.0) % Eosinophils (Manual) (0.00-3.0) % Hypochromia Platelet Estimate (NORMAL) RBC Morphology Poikilocytosis Ovalocytes Acanthocytes (Spur) Schistocytes Smear Path Review PT (9.95-12.35) SECONDS INR (0.8-3.0) Sodium (137-145) mmol/L Potassium (3.5-5.1) mmol/L Chloride (98-107) mmol/L Carbon Dioxide (22-30) mmol/L Anion Gap (5-15) MEQ/L BUN (7-17) mg/dL Creatinine (0.52-1.04) mg/dL Estimated GFR ML/MIN Glucose (74-106) mg/dL Calcium (8.4-10.2) mg/dL Total Bilirubin (0.2-1.3) mg/dL AST (14-36) U/L ALT (0-35) U/L Alkaline Phosphatase (38-126) U/L Serum Total Protein (6.3-8.2) g/dL Albumin (3.5-5.0) g/dL ABO Group A Rh Factor POSITIVE Antibody Screen NEGATIVE (NEGATIVE) Crossmatch COMPATIBLE COMPATIBLE COMPATIBLE (COMPATIBLE) 04/15/20 04/15/20 04/15/20 Range/Units 16:54 16:54 16:54 WBC 1.2 L* (4.0-10.5) K/mm3 RBC 2.35 L (4.1-5.4) M/mm3 Hgb 6.3 L* (12.0-16.0) gm/dl Hct 21.1 L (35-47) % MCV 89.8 (78-100) fl MCH 26.8 (26-32) pg MCHC 29.9 L (32-36) g/dl RDW 13.1 (11.5-14.0) % Plt Count 130 L (150-450) K/mm3 MPV 13.7 H (7.5-11.0) fl Segmented Neutrophils 16 L (36.0-66.0) % Band Neutrophils 10 H (0.0-2.0) % Lymphocytes (Manual) 52 H (24-44) % Monocytes (Manual) 18 H (0.0-12.0) % Eosinophils (Manual) 4 H (0.00-3.0) % Hypochromia 2+ Platelet Estimate NORMAL (NORMAL) RBC Morphology ABNORMAL Poikilocytosis 2+ Ovalocytes 2+ Acanthocytes (Spur) 1+ Schistocytes 1+ Smear Path Review Pending PT 12.8 H (9.95-12.35) SECONDS INR 1.13 (0.8-3.0) Sodium 136 L (137-145) mmol/L Potassium 3.8 (3.5-5.1) mmol/L Chloride 113 H (98-107) mmol/L Carbon Dioxide 17 L (22-30) mmol/L Anion Gap 10.2 (5-15) MEQ/L BUN 48 H (7-17) mg/dL Creatinine 4.12 H (0.52-1.04) mg/dL Estimated GFR 13.0 ML/MIN Glucose 107 H (74-106) mg/dL Calcium 7.7 L (8.4-10.2) mg/dL Total Bilirubin 0.30 (0.2-1.3) mg/dL AST 27 (14-36) U/L ALT 35 (0-35) U/L Alkaline Phosphatase 41 (38-126) U/L Serum Total Protein 5.5 L (6.3-8.2) g/dL Albumin 3.1 L (3.5-5.0) g/dL ABO Group Rh Factor Antibody Screen (NEGATIVE) Crossmatch (COMPATIBLE) - Progress Progress: improved, re-examined Air Movement: good Progress Note: 03/06/21 21:41 Medical decision making: This patient has an excellent understanding of her medical conditions and their management. She has chronically very high blood pressure. She is on 3 different medications for this. I have seen this patient on 2 other occasions. This patient states that her systolic blood pressure runs anywhere from 160s to 170s routinely. Her diastolic blood pressure is routinely between mid 90s to low 110s. She states it is not unusual for her systolic blood pressure to be over 200 and her diastolic blood pressure to be over 115. Then within 30 minutes she is back down to her routine levels without any intervention. Patient is very aware that she is chronically anemic and was aware that her hemoglobin was low. Also, she is having worsening kidney function (GFR) over the last several months. Finally, she is aware that she is having progressive leukopenia. They are working on getting her on the list for a third renal transplant. Patient has symptomatic anemia and will require blood transfusions. I spoke with Dr. Garza and reviewed the patient history, condition, laboratory results. He agrees to place the patient in observation. We will monitor and treat her blood pressure. We will transfuse her 3 units of packed red blood cells and repeat labs in the morning. Blood Culture(s) Obtained: No Antibiotics given: No Discussed with : Ivana Counseled pt/family regarding: lab results, diagnosis - Departure Departure Disposition: Observation Clinical Impression: Leukopenia, Symptomatic anemia, Thrombocytopenia, Hypertension Condition: Critical Care Time: Yes Critical Care Time(excluding separately billable procedures): Critical 30-74 mins Referrals: PATEL BUITRAGO DO [Primary Care Provider] -
[2020-04-15 16:57] LABS: Hematocrit 21.1 % (35-47); Mean Cell Volume 89.8 fl (78-100); Mean Corpuscular Hemoglobin 26.8 pg (26-32); Mean Corpuscular Hgb Concent. 29.9 g/dl (32-36); Mean Platelet Volume 13.7 fl (7.5-11.0); Platelet Count 130 K/mm3 (150-450); Red Blood Count 2.35 M/mm3 (4.1-5.4); Red Cell Distribution Width 13.1 % (11.5-14.0)
[2020-04-15 17:05] LABS: INR 1.13 (0.8-3.0); PROTIME 12.8 SECONDS (9.95-12.35)
[2020-04-15 17:09] LABS: Hemoglobin 6.3 gm/dl (12.0-16.0); White Blood Count 1.2 K/mm3 (4.0-10.5)
[2020-04-15 17:10] LABS: ALBUMIN 3.1 g/dL (3.5-5.0); ANION GAP 10.2 MEQ/L (5-15); BILIRUBIN,TOTAL 0.3 mg/dL (0.2-1.3); Calcium 7.7 mg/dL (8.4-10.2); Creatinine 1 4.12 mg/dL (0.52-1.04); Potassium 3.8 mmol/L (3.5-5.1); Total Protein 5.5 g/dL (6.3-8.2)
[2020-04-15 17:46] LABS: ABO TYPING A; Antibody Screen NEGATIVE (NEGATIVE); RH TYPING POSITIVE
[2020-04-15 19:20] LABS: BAND 10 % (0.0-2.0); Eosinophil 4 % (0.00-3.0); Hypochromia 2+; Lymphocytes 52 % (24-44); Monocyte 18 % (0.0-12.0); Neutrophils 16 % (36.0-66.0); Platelet Estimate NORMAL (NORMAL); Total Cells Counted 100
[2020-04-15 19:21] LABS: Ovalocytes 2+; Poikilocytosis 2+; Schistocytes 1+
[2020-04-15 19:22] LABS: ACANTHROCYTES 1+
[2020-04-15 19:54] LABS: CROSS MATCH (PRBC) COMPATIBLE (COMPATIBLE)
[2020-04-15] MEDS ORDERED: Sodium Chloride 0.9% 500 ML 500 ML IV ONE (20:05)
[2020-04-15] MEDS ORDERED: Sodium Chloride 0.9% 500 ML 500 ML IV SCH (20:15)
[2020-04-15 22:21] LABS: INFLUENZA A NEGATIVE (NEGATIVE); INFLUENZA B NEGATIVE (NEGATIVE); RESPIRATORY SYNCTIAL VIRUS NEGATIVE (Negative)
[2020-04-15] MEDS ORDERED: Zofran 4 MG/2 ML VIAL IV PRN (22:47)
[2020-04-15] MEDS ORDERED: TYLENOL 325 MG PO PRN (22:47)
[2020-04-16] MEDS ORDERED: Sodium Chloride 0.9% 500 ML 500 ML IV ONE (00:24)
[2020-04-16] MEDS ORDERED: Sodium Chloride 0.9% 500 ML 500 ML IV SCH (00:30)
[2020-04-16] MEDS: Catapres 0.1 MG PO PRN ×3 (00:52→09:06)
[2020-04-16 06:55] VITALS: PULSE 76; O2SAT 95
[2020-04-16 08:23] LABS: Absolute Neutrophil Ct (ANC) 0.13 (1.4-6.9); Basophil (Absolute #) 0.02 (0-0.4); Eosinophil (Absolute #) 0.08 (0-0.5); Hematocrit 34.5 % (35-47); Hemoglobin 10.9 gm/dl (12.0-16.0); Lymphocyte (Absolute #) 0.41 (1.0-4.6); Mean Cell Volume 88.5 fl (78-100); Mean Corpuscular Hemoglobin 27.9 pg (26-32); Mean Corpuscular Hgb Concent. 31.6 g/dl (32-36); Mean Platelet Volume 12.7 fl (7.5-11.0); Monocyte (Absolute #) 0.36 (0.0-1.3); Platelet Count 108 K/mm3 (150-450); Red Cell Distribution Width 13.7 % (11.5-14.0)
[2020-04-16 08:41] LABS: ANION GAP 13.1 MEQ/L (5-15); Creatinine 1 4.06 mg/dL (0.52-1.04); EST GLOMERULAR FILTRATION RATE 13.2 ML/MIN; Potassium 3.9 mmol/L (3.5-5.1)
[2020-04-16 09:03] VITALS: BP 211/118
[2020-04-16] MEDS ORDERED: TOCILIZUMAB IV SCH (10:45)
[2020-04-16] MEDS ORDERED: MEDICATION INTERVENTION PO SCH (10:45)
[2020-04-16] MEDS ORDERED: Coreg 6.25 MG PO SCH (11:00)
[2020-04-16] MEDS ORDERED: Cozaar 50 MG PO SCH (11:00)
[2020-04-16] MEDS ORDERED: NON-FORMULARY ITEM (Mycophenolate Mofetil [Cellcept] 500 MG) PO SCH (15:00)
[2020-04-16] MEDS ORDERED: ZOLOFT 50 MG TABLET PO SCH (22:00)
[2020-04-16] MEDS ORDERED: SERTRALINE HCL 12.5 MG PO SCH (22:00)
[2020-04-16] MEDS ORDERED: CYCLOSPORINE PO SCH (22:00)
[2020-04-17] MEDS ORDERED: NON-FORMULARY ITEM (Losartan Potassium [Cozaar] 25 MG) PO SCH (10:00)
--- NOTE | 2020-04-17 11:01 | SSS ---
DISCHARGE DIAGNOSES: 1) PROFOUND ANEMIA. 2) PANCYTOPENIA. 3) HYPERTENSION. 4) CHRONIC RENAL FAILURE. HISTORY: The patient is a 35 year-old white female who had labs performed and found her hemoglobin to be in the 6 range. The patient was trying to be contacted by her doctor, became more short of breath and presented to the emergency room and we confirmed that her blood count was very low. The plan was for her to be transfused. The patient also has history of very significant hypertension. She has had renal failure and two kidney transplants. She is on the list for a third. PAST MEDICAL/SURGICAL HISTORY: Otherwise significant for depression, anxiety. She has had fibroids, Fuchs disease with the kidneys and again kidney transplant and numerous kidney biopsies. The patient does see nephrology specialist in [place]. She sees Dr. Lindquist here for the past couple of years otherwise for her routine medical care. HOME MEDICATIONS: Currently are Sertraline 12.5 mg daily, carvedilol 6.25 b.i.d., cyclosporine 3 tablets twice a day, Catapres 0.2 mg q4h PRN, Cozaar 25 mg a day, Actemra 500 mg IV, CellCept 500 mg t.i.d. ALLERGIES: VANCOMYCIN. HYDROCODONE. TORADOL. PHENERGAN. LISINOPRIL. COMPAZINE. PHYSICAL EXAMINATION: Revealed a well-nourished, well-developed 35 year-old white female currently lying in bed in good spirits, appears to be in reasonably health considering. VITAL SIGNS: The patient's temperature was 98.6F on admission with pulse of 62, respiratory rate 13, blood pressure 193/108. O2 saturations 100%. HEENT: Normocephalic, atraumatic. Pupils equal round reactive to light. Extraocular movements intact. Oropharynx is pink and moist. NECK: Supple without lymphadenopathy, thyromegaly or JVD. CHEST: Clear to auscultation. HEART: Regular rate and rhythm. ABDOMEN: Soft. EXTREMITIES: Without cyanosis, clubbing or edema. NEUROLOGIC: The patient is alert and oriented x3. LAB DATA AND TESTS: The patient's laboratory studies from the emergency room were negative for COVID, influenza and RSV. Her INR is 1.13. Her white blood cell count was 1,200, hemoglobin 6.3, PLT count 130,000. Sugar 107, BUN 48, creatinine 4.12, sodium 136, potassium 3.8, chloride 113, bicarb 17. Liver enzymes were normal. The patient's differential showed 16 polys, 10 bands, 52 lymphocytes, 18 monocytes. HOSPITAL COURSE: The patient received 3 units of packed red blood cells bringing her hemoglobin up to 10.9. Her white count however was only 1,000, platelet count was down to 108,000. We discussed with the patient her care. She wished to return home presently as she will see her veneer layer and follow up with her primary care physician. She will continue her home medications for hypertension which she knows is quite significant. Her plans otherwise are to follow up in [place]. We will give her all of her labs to take to her primary care physician and to her veneer layer and transplant people in [place].
== END 2020-04-16 11:17 | disposition home or self-care (01) ==
LOC: ED 16:18 → MED SURG 22:44
PROVIDERS: ADMIT Family Medicine; ATTEND Family Medicine
DX: D64.9 Anemia, unspecified (principal); I12.9 Hypertensive chronic kidney disease with stage 1 through stage 4 chronic kidney disease, or unspecified chronic kidney disease; N18.9 Chronic kidney disease, unspecified; D61.818 Other pancytopenia; Z79.899 Other long term (current) drug therapy; Z94.0 Kidney transplant status
CPT/HCPCS: 0241U; 36000; 36415; 36430; 80048; 80053; 85025; 85610; 86850; 86900; 86901; 86922; 99285; 99291; G0378; P9016; A9270-GY

== ENCOUNTER 2020-05-28 10:06 | Emergency (ER) | payer MEDICARE ==
[2020-05-28] MEDS ORDERED: Sodium Chloride 0.9% 1000 ML 1,000 ML IV STA (11:07)
[2020-05-28] MEDS ORDERED: Sodium Chloride 0.9% 1000 ML 1,000 ML ONE (11:21)
[2020-05-28] MEDS ORDERED: ZOFRAN ODT 4 MG PO PRN (11:32)
[2020-05-28 11:33] LABS: Absolute Neutrophil Ct (ANC) 6.83 (1.4-6.9); BASOPHIL % 0.3 % (0.0-0.4); Basophil (Absolute #) 0.02 (0-0.4); Eosinophil % 0.3 % (0.00-5.0); Eosinophil (Absolute #) 0.02 (0-0.5); Hematocrit 23.9 % (35-47); Hemoglobin 7.7 gm/dl (12.0-16.0); Lymphocyte (Absolute #) 0.64 (1.0-4.6); Lymphocytes % 8.2 % (24.0-44.0); Mean Cell Volume 84.8 fl (78-100); Mean Corpuscular Hemoglobin 27.3 pg (26-32); Mean Corpuscular Hgb Concent. 32.2 g/dl (32-36); Mean Platelet Volume 12.4 fl (7.5-11.0); Monocyte (Absolute #) 0.29 (0.0-1.3); Monocytes % 3.7 % (0.0-12.0); Neutrophil % 87.5 % (36.0-66.0); Platelet Count 147 K/mm3 (150-450); Red Blood Count 2.82 M/mm3 (4.1-5.4); Red Cell Distribution Width 12.5 % (11.5-14.0); White Blood Count 7.8 K/mm3 (4.0-10.5)
[2020-05-28 11:39] LABS: Appearance SLIGHTLY CLOUDY (CLEAR); Bacteria RARE /HPF (NEGATIVE); Bilirubin NEGATIVE (NEGATIVE); Blood NEGATIVE Ery/ul (0-5); Epithelial Cells RARE /HPF (FEW); Glucose 50 mg/dL (NEGATIVE); Ketones TRACE (NEGATIVE); Leukocyte Esterase SMALL (NEGATIVE); Nitrite NEGATIVE (NEGATIVE); Protein,Urine Dip >=500 (Negative); Specific Gravity 1.013 (1.005-1.025); Urobilinogen NEGATIVE mg/dL (0-1); WBC 51-100 /HPF (0-5)
[2020-05-28 11:45] LABS: ALBUMIN 3.8 g/dL (3.5-5.0); ANION GAP 19.4 MEQ/L (5-15); BILIRUBIN,TOTAL 0.5 mg/dL (0.2-1.3); Calcium 9.3 mg/dL (8.4-10.2); Creatinine 1 7.16 mg/dL (0.52-1.04); EST GLOMERULAR FILTRATION RATE 6.9 ML/MIN; Total Protein 6.7 g/dL (6.3-8.2)
[2020-05-28] MEDS: APRESOLINE 20 MG/ML INJ IV PRN ×4 (11:48→16:18)
--- NOTE | 2020-05-28 13:03 | ERPHSYRPT ---
- History of Present Illness Time Seen by Provider: 05/28/20 10:40 Source: patient Exam Limitations: no limitations Patient Subjective Stated Complaint: Pt was changed BP meds on Friday and she has been vomiting since Triage Nursing Assessment: Pt brought to ER by her "father", hypertensive, denies pain, vomiting, new BP med is minoxidil which caused her BP to mohinder rocket and get sick and once she vomited her blood pressure went back down, pt is an end stage renal disease pt and 2x kidney transplant and is getting ready to have her abdomen mapped for peritaneal dialysis Physician History: Patient is a 35-year-old female with longstanding kidney disease which includes 2 transplants in the past she 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 She has been trying to delay that so that she can finish up the semester at school. She is maintained on clonidine for her blood pressure but recently that has not been working and they started her on minoxidil which caused repeated nausea and vomiting so she has been vomiting for several days and is unable to retain anything at present. Timing/Duration: day(s) (3) Activities at Onset: none Quality: fullness Location: substernal Chest Pain Radiation: no radiation Severity of Pain-Max: mild Modifying Factors: Improves With: nothing Nitro Today/Relief: no nitro taken today Aspirin Treatment Today: no aspirin today Associated Symptoms: nausea, vomiting, shortness of breath, chest pain Allergies/Adverse Reactions: minoxidil Allergy (Severe, Verified 05/28/20 10:40) lisinopril Allergy (Mild, Verified 05/28/20 10:40) prochlorperazine edisylate [From Compazine] Allergy (Mild, Verified 05/28/20 10 :40) prochlorperazine maleate [From Compazine] Allergy (Mild, Verified 05/28/20 10:40) vancomycin Allergy (Mild, Verified 05/28/20 10:40) hydrocodone [From Vicodin] Allergy (Verified 05/28/20 10:40) ketorolac [From Toradol] Allergy (Verified 05/28/20 10:40) promethazine [From Phenergan] Allergy (Verified 05/28/20 10:40) Home Medications: Sertraline HCl [Zoloft] 12.5 mg PO HS 11/09/19 [History] Carvedilol 6.25 mg [Coreg 6.25 MG] 1 tab PO BID 11/10/19 [History] cycloSPORINE [Cyclosporine] 3 ea PO BID 01/28/20 [History] Clonidine HCl 0.1 mg [Catapres 0.1 MG] 0.2 mg PO Q4HPRN PRN 02/25/20 [History] Losartan Potassium [Cozaar] 25 mg PO DAILY 02/25/20 [History] Mycophenolate Mofetil [Cellcept] 500 mg PO TID 04/15/20 [History] Hx Tetanus, Diphtheria Vaccination/Date Given: (2006) Hx Influenza Vaccination/Date Given: Yes Hx Pneumococcal Vaccination/Date Given: No Travel Risk - International Travel Have you traveled outside of the country in past 3 weeks: No - Coronavirus Screening Are you exhibiting any of the following symptoms?: No - Vaccine Status Have you recieved a Covid-19 vaccination: Yes [employer]: [employer] - Vaccination Dates Date of 2cond Vaccination (if applicable): 03/21/2020 - Review of Systems Constitutional: No Fever, No Chills Eyes: No Symptoms Ears, Nose, & Throat: No Symptoms Respiratory: Dyspnea Cardiac: Chest Pain Abdominal/Gastrointestinal: Nausea, Vomiting Genitourinary Symptoms: No Symptoms Musculoskeletal: No Symptoms Skin: No Symptoms Neurological: Headache Psychological: No Symptoms Endocrine: No Symptoms Hematologic/Lymphatic: No Symptoms Immunological/Allergic: No Symptoms - Past Medical History Pertinent Past Medical History: Yes Neurological History: Migraines, Seizures ENT History: Other Cardiac History: Hypertension Respiratory History: No Pertinent History Endocrine Medical History: Other Musculoskeletal History: Arthritis, Osteoarthritis GI Medical History: GERD History: Renal Disease, Other Psycho-Social History: Anxiety, Depression Female Reproductive Disorders: Fibroids Other Medical History: Fuchs Disease, kidney transplant x2, end stage kidney disease - Past Surgical History Past Surgical History: Yes Neuro Surgical History: No Pertinent History Cardiac: No Pertinent History Respiratory: No Pertinent History Gastrointestinal: No Pertinent History Genitourinary: Kidney Transplant Musculoskeletal: No Pertinent History, Orthopedic Surgery Female Surgical History: No Pertinent History Other Surgical History: Larynoplasty with T+A. Numerous kidney biopsys. 1 kidney transplant 2005 that was removed 2008. 1 kidney transplant 2012. right upper arm dialysis graft that is flattened- non functioning - Social History Smoking Status: Former smoker Exposure to second hand smoke: Yes Alcohol Use: None Drug Use: none Patient Lives Alone: Yes Significant Family History: other (See RN notes) - Female History Hx Last Menstrual Period: 03/09/2020 Hx Now: No (had blood transfusion in Mar) - Nursing Vital Signs Nursing Vital Signs: Initial Vital Signs Temperature 98.9 F 05/28/20 10:29 Pulse Rate 86 05/28/20 10:29 Respiratory Rate 19 05/28/20 10:29 Blood Pressure 209/127 05/28/20 10:29 O2 Sat by Pulse Oximetry 100 05/28/20 10:29 Pain Scale Pain Intensity 2 - Physical Exam General Appearance: moderate distress, alert Eye Exam: PERRL/EOMI, eyes nml inspection Ears, Nose, Throat Exam: normal ENT inspection, moist mucous membranes Neck Exam: normal inspection, non-tender, supple Respiratory Exam: normal breath sounds, lungs clear, No respiratory distress Cardiovascular Exam: regular rate/rhythm, normal heart sounds, No edema Gastrointestinal/Abdomen Exam: soft, No tenderness, No mass Back Exam: normal inspection, No CVA tenderness, No vertebral tenderness Extremity Exam: normal inspection, normal range of motion Neurologic Exam: alert, oriented x 3, cooperative, normal mood/affect, nml cerebellar function, sensation nml, No motor deficits Skin Exam: normal color, warm, dry Lymphatic Exam: No adenopathy SpO2: 100 - Course Nursing assessment & vital signs reviewed: Yes EKG Interpreted by Me: RATE, Sinus Tach (113), NORMAL AXIS, NORMAL INTERVALS, Non-specific ST Changes - Radiology Exams Chest X-ray Interpretation: Interpreted by me, Negative Ordered Tests: Active Orders 24 hr Category Date Time Status IV Insertion STAT Care 05/28/20 11:07 Active CHEST 1 VIEW (PORTABLE) Stat Exams 05/28/20 11:24 Taken AMYLASE Stat Lab 05/28/20 11:20 Completed CBC W DIFF Stat Lab 05/28/20 11:20 Completed CMP Stat Lab 05/28/20 11:20 Completed CULTURE,URINE Stat Lab 05/28/20 11:19 Received LIPASE Stat Lab 05/28/20 11:20 Completed Lactic Acid Stat Lab 05/28/20 11:07 Completed TROPONIN Q3H Lab 05/28/20 11:20 Completed TROPONIN Q3H Lab 05/28/20 14:15 Ordered TROPONIN Q3H Lab 05/28/20 17:15 Ordered TROPONIN Q3H Lab 05/28/20 20:15 Ordered TROPONIN Q3H Lab 05/28/20 23:15 Ordered UA W/RFX UR CULTURE Stat Lab 05/28/20 11:19 Completed Medication Summary Generic Name Dose Route Start Last Admin Trade Name Freq PRN Reason Stop Dose Admin Hydralazine HCl 5 mg 05/28/20 11:30 05/28/20 12:31 Apresoline 20 Mg/Ml Inj IV 06/27/20 11:29 10 mg [id number] PRN Administration HYPERTENSION Ondansetron HCl 4 mg 05/28/20 11:32 05/28/20 11:51 Zofran Odt 4 Mg PO 06/27/20 11:31 4 mg Q4H PRN PRN Administration NAUSEA/VOMITING Discontinued Medications Generic Name Dose Route Start Last Admin Trade Name Freq PRN Reason Stop Dose Admin Sodium Chloride 1,000 mls @ 999 mls/hr 05/28/20 11:07 05/28/20 12:45 Sodium Chloride 0.9% 1000 Ml IV 05/28/20 12:07 Infused .Q1H1M STA Infusion Sodium Chloride Confirm 05/28/20 11:21 Sodium Chloride 0.9% 1000 Ml Administered 05/28/20 11:22 Dose 1,000 mls @ ud .ROUTE .STK-MED ONE Lab/Rad Data: Laboratory Result Diagrams 05/28/20 11:20 05/28/20 11:20 Laboratory Results 05/28/20 05/28/20 05/28/20 Range/Units 11:20 11:20 11:20 WBC 7.8 (4.0-10.5) K/mm3 RBC 2.82 L (4.1-5.4) M/mm3 Hgb 7.7 L (12.0-16.0) gm/dl Hct 23.9 L (35-47) % MCV 84.8 (78-100) fl MCH 27.3 (26-32) pg MCHC 32.2 (32-36) g/dl RDW 12.5 (11.5-14.0) % Plt Count 147 L (150-450) K/mm3 MPV 12.4 H (7.5-11.0) fl Gran % 87.5 H (36.0-66.0) % Eos # (Auto) 0.02 (0-0.5) Absolute Lymphs (auto) 0.64 L (1.0-4.6) Absolute Monos (auto) 0.29 (0.0-1.3) Lymphocytes % 8.2 L (24.0-44.0) % Monocytes % 3.7 (0.0-12.0) % Eosinophils % 0.3 (0.00-5.0) % Basophils % 0.3 (0.0-0.4) % Absolute Granulocytes 6.83 (1.4-6.9) Basophils # 0.02 (0-0.4) Sodium 141 (137-145) mmol/L Potassium 4.0 (3.5-5.1) mmol/L Chloride 112 H (98-107) mmol/L Carbon Dioxide 14 L* (22-30) mmol/L Anion Gap 19.4 H (5-15) MEQ/L BUN 73 H (7-17) mg/dL Creatinine 7.16 H (0.52-1.04) mg/dL Estimated GFR 6.9 ML/MIN Glucose 102 (74-106) mg/dL Lactic Acid (0.4-2.0) Calcium 9.3 (8.4-10.2) mg/dL Total Bilirubin 0.50 (0.2-1.3) mg/dL AST 17 (14-36) U/L ALT 12 (0-35) U/L Alkaline Phosphatase 69 (38-126) U/L Troponin I 0.073 H* (0.000-0.034) ng/mL Serum Total Protein 6.7 (6.3-8.2) g/dL Albumin 3.8 (3.5-5.0) g/dL Amylase 150 H (30-110) U/L Lipase 310 H (23-300) U/L Urine Color (YELLOW) Urine Appearance (CLEAR) Urine pH (5-6) Ur Specific [place] (1.005-1.025) Urine Protein (Negative) Urine Ketones (NEGATIVE) Urine Blood (0-5) Art/ul Urine Nitrite (NEGATIVE) Urine Bilirubin (NEGATIVE) Urine Urobilinogen (0-1) mg/dL Ur Leukocyte Esterase (NEGATIVE) Urine WBC (Auto) (0-5) /HPF Urine RBC (Auto) (0-2) /HPF U Epithel Cells (Auto) (FEW) /HPF Urine Bacteria (Auto) (NEGATIVE) /HPF Urine Culture Reflexed (NO) Urine Glucose (NEGATIVE) mg/dL 05/28/20 05/28/20 Range/Units 11:19 11:07 WBC (4.0-10.5) K/mm3 RBC (4.1-5.4) M/mm3 Hgb (12.0-16.0) gm/dl Hct (35-47) % MCV (78-100) fl MCH (26-32) pg MCHC (32-36) g/dl RDW (11.5-14.0) % Plt Count (150-450) K/mm3 MPV (7.5-11.0) fl Gran % (36.0-66.0) % Eos # (Auto) (0-0.5) Absolute Lymphs (auto) (1.0-4.6) Absolute Monos (auto) (0.0-1.3) Lymphocytes % (24.0-44.0) % Monocytes % (0.0-12.0) % Eosinophils % (0.00-5.0) % Basophils % (0.0-0.4) % Absolute Granulocytes (1.4-6.9) Basophils # (0-0.4) Sodium (137-145) mmol/L Potassium (3.5-5.1) mmol/L Chloride (98-107) mmol/L Carbon Dioxide (22-30) mmol/L Anion Gap (5-15) MEQ/L BUN (7-17) mg/dL Creatinine (0.52-1.04) mg/dL Estimated GFR ML/MIN Glucose (74-106) mg/dL Lactic Acid 1.2 (0.4-2.0) Calcium (8.4-10.2) mg/dL Total Bilirubin (0.2-1.3) mg/dL AST (14-36) U/L ALT (0-35) U/L Alkaline Phosphatase (38-126) U/L Troponin I (0.000-0.034) ng/mL Serum Total Protein (6.3-8.2) g/dL Albumin (3.5-5.0) g/dL Amylase (30-110) U/L Lipase (23-300) U/L Urine Color YELLOW (YELLOW) Urine Appearance SLIGHTLY CLOUDY (CLEAR) Urine pH 8.0 (5-6) Ur Specific [place] 1.013 (1.005-1.025) Urine Protein >=500 (Negative) Urine Ketones TRACE (NEGATIVE) Urine Blood NEGATIVE (0-5) Art/ul Urine Nitrite NEGATIVE (NEGATIVE) Urine Bilirubin NEGATIVE (NEGATIVE) Urine Urobilinogen NEGATIVE (0-1) mg/dL Ur Leukocyte Esterase SMALL (NEGATIVE) Urine WBC (Auto) 51-100 (0-5) /HPF Urine RBC (Auto) NONE (0-2) /HPF U Epithel Cells (Auto) RARE (FEW) /HPF Urine Bacteria (Auto) RARE (NEGATIVE) /HPF Urine Culture Reflexed YES (NO) Urine Glucose 50 (NEGATIVE) mg/dL - Progress Progress: unchanged Air Movement: good Blood Culture(s) Obtained: No Antibiotics given: No Discussed with DrAlejandra: Other (Dicussed with Dr Sheppard who shortly after initial evaluation he recommended treatment of her hypertension with hydralazine which was initiated. Her blood pressure was quite resistant to the hydralazine we recontacted Dr. Jasmina healy and after he got her labs was decided to transfer her to .) - Departure Departure Disposition: Transfer (Transferred to Dr. Rayna Tidwell and the hospitalist excepting the patient) Clinical Impression: Hypertensive urgency, malignant, Metabolic acidosis, Renal failure (ARF), acute on chronic Condition: Serious Critical Care Time: No Referrals: PATEL BUITRAGO DO [Primary Care Provider] -
[2020-05-28] MEDS ORDERED: Zofran 4 MG/2 ML VIAL ONE (13:09)
[2020-05-28] MEDS ORDERED: Zofran 4 MG/2 ML VIAL IV ONE (13:15)
[2020-05-28] MEDS ORDERED: APRESOLINE 20 MG/ML INJ ONE (13:20)
[2020-05-28] MEDS ORDERED: TRANDATE 20 MG/4 ML SYRINGE IV ONE (13:57)
[2020-05-28] MEDS ORDERED: Ativan 2 MG/1 ML VIAL IV PRN (13:58)
[2020-05-28] MEDS ORDERED: Ativan 2 MG/1 ML VIAL ONE (13:59)
[2020-05-28] MEDS: TRANDATE 20 MG/4 ML SYRINGE IV ONE ×2 (14:02→15:30)
[2020-05-28] MEDS ORDERED: SUBLIMAZE 100 MCG/2 ML IV ONE (15:08)
[2020-05-28] MEDS ORDERED: SUBLIMAZE 100 MCG/2 ML ONE (15:10)
[2020-05-28] MEDS ORDERED: ROCEPHIN 1 Gm-D5w 50 ml Bag** 1 G/50 ML IVPB IV STA (15:51)
[2020-05-28] MEDS ORDERED: ROCEPHIN 1 Gm-D5w 50 ml Bag** 1 G/50 ML IVPB IV ONE (15:52)
[2020-05-28] MEDS ORDERED: Rocephin 500 MG INJ** 500 MG in Sodium Chloride 0.9% 100 ML IVPB 100 ML IV ONE (15:59)
[2020-05-28 16:08] VITALS: BP 179/107; PULSE 124; O2SAT 98
--- NOTE | 2020-05-28 18:26 | XRAY ---
Indication: Chest pain. Comparison: November 10, 2019. Portable apical lordotic chest again demonstrates normal heart, lungs, and bony thorax.
== END 2020-05-28 17:04 | disposition short-term general hospital (02) ==
LOC: ED 10:06
DX: I16.0 Hypertensive urgency (principal)
CPT/HCPCS: 36000; 36415; 71045; 80053; 81001; 82150; 83605; 83690; 84484; 85025; 87086; 96365; 96374; 96375; 96376; 99285; J0360; J0696; J2060; J2405; J3010; Q0162